=== PATIENT | female | born 1950 | race Caucasian/White ===

== ENCOUNTER 2024-05-24 17:31 | Inpatient (IN) ==
[2024-05-24] MEDS: SODIUM CHLORIDE 0.9% 1,000 ML IV SCH (18:13)
[2024-05-24] MEDS: SODIUM CHLORIDE 0.9% 250 ML IV ONE (18:13)
[2024-05-24] MEDS: METOPROLOL TARTRATE 1 MG/ML VIAL IV STA (18:16)
[2024-05-24 18:17] LABS: Basophils # (auto) 0.09 K/uL (0.00-0.20); Basophils % (auto) 0.7 %; Eosinophils # (auto) 0.15 K/uL (0.00-0.50); Eosinophils % (auto) 1.1 %; Hematocrit (blood only) 39.4 % (37.0-47.0); Hemoglobin 13.9 g/dl (12.0-16.0); Immature Granulocytes # (auto) 0.29 K/uL (0.01-0.20); Immature Granulocytes % (auto) 2.1 %; Lymphocytes % (auto) 5.1 %; Mean Corpuscular Hemoglobin 33.5 pg (25.0-34.0); Mean Corpuscular Hgb Conc 35.3 g/dL (32.0-36.0); Mean Corpuscular Volume 94.9 fL (80.0-100.0); Mean Platelet Volume 8.6 fL (9.4-12.4); Monocytes % (auto) 11.8 %; Neutrophils # (auto) 10.78 K/uL (1.40-6.50); Neutrophils % (auto) 79.2 %; Platelet Count 219 K/uL (130-400); RDW Coefficient of Variation 14.6 % (11.5-14.5); RDW Standard Deviation 50.1 fL (36.4-46.3); Red Blood Count 4.15 M/uL (4.20-5.40); White Blood Count 13.61 K/ul (4.8-10.8)
--- NOTE | 2024-05-24 18:34 | XRay Report ---
XR chest 1V portable CLINICAL HISTORY: weakness TECHNIQUE: Single frontal radiograph of the chest was obtained. Comparison: Comparison is made to chest radiograph 12/08/2014 and chest radiograph 03/14/2016 FINDINGS: Degenerative changes are seen in the bilateral shoulders with ossific fragments noted. The cardiomedi astinal silhouette is normal. The lungs are clear. No evidence of pleural effusion or pneumothorax. IMPRESSION: No acute chest disease. ACT 112: Negative or not required by law. Electronically signed by: Lang Mayers M.D. 05/24/2024 6:33 PM
[2024-05-24 18:36] LABS: Albumin Globulin Ratio 0.9 (0.9-2); Albumin Level 3.6 gm/dl (3.4-5.0); BUN Creatinine Ratio 22.7 (10-20); Bilirubin,Total 3.6 mg/dl (0.2-1.0); Creatinine Clr Calc Pharmacy 21.4 ml/min; Est GFR (African American) 22.8 ml/min; Est GFR (Non-African American) 19.7 ml/min; Magnesium 1.2 mg/dl (1.7-2.4); Potassium 5.8 mmol/L (3.5-5.1); Total Protein 7.6 gm/dl (6.0-8.3)
[2024-05-24 18:37] LABS: Troponin I High Sensitivity 23.2 pg/ml (0-14)
[2024-05-24 18:51] LABS: Thyroid Stimulating Hormone 5.183 uIu/ml (0.300-4.500)
[2024-05-24] MEDS: MAGNESIUM SULFATE / D5W 1 GM/100 ML BAG IV ONE (18:54)
--- NOTE | 2024-05-24 18:54 | Emergency Department Note ---
Impression & Plan Acute hyponatremia, Acute hyperkalemia, Acute renal failure, Atrial fibrillation with rapid ventricular response, Hypomagnesemia, Cellulitis, Leukocytosis ED Provider Note NAME: SEPIDEH FAM AGE: 74 SEX: Female INFORMANT: Patient ED PROVIDER(S): Wagner Sam MD CHIEF COMPLAINT: Abnormal labs PLAN: Disposition: Admitted Outpatient prescription management: none Referral: None MEDICAL DECISION MAKING: Patient presented due to abnormal labs. Physical examination was performed. Patient's legs were weeping and erythematous. She also noted pain. She had a diffuse dermatitis going on as well. Exact etiology was not obvious. Patient's had blood work obtained. Her CBC showed a leukocytosis. Chemistry panel revealed hyponatremia, hypomagnesium, hyperkalemia and an elevated creatinine concerning for acute renal failure. Patient had a borderline elevation of cardiac troponin. She did have A-fib with RVR on her ECG. Blood cultures and lactate were ordered. Patient was gently hydrated and given 2.5 mg of IV Lopressor for rate control. IV Rocephin was given for the suspected cellulitis. Patient did receive IV magnesium. Patient had gentle hydration done because of her hyponatremia and concerns about raising the sodium too quickly. She had no significant hypotension. Her lactate is minimally elevated. I suspect this is related to her metabolic state as opposed to true sepsis however she will need to be closely monitored. Discussed the findings with the patient and family. Consultation was made with Dr. Pederson of the [facility] service. Patient was evaluated in the ER for further management. Care/management discussed with: bilingual account manager Level of care consideration(s): After review of the information above and other included data, I feel the patient requires escalation of care to admission Triage Nursing notes: reviewed and agree them. Vital Signs: reviewed and remarkable for tachycardia Additional History obtained from: Family who was present. They note her legs have been a problem for her over a year. Rash is new. Chronic Medical/Social Conditions affecting care: Lives alone Prior/ Outside/ External records reviewed: none Differential Diagnosis: Infection, dehydration, metabolic abnormality, hypo/hyperglycemia, electrolyte disturbance, anemia, hypoxia, cardiac sources, intracerebral event, toxicologic, neurologic, as well as other pathologies. Diagnostics, independently interpreted by me: ECG: Twelve-lead ECG reveals atrial fibrillation with rapid ventricular response at 119 bpm. Low-voltage QRS. Anteroseptal Q waves. No peaked T waves. Cardiac Monitoring: Cardiac monitoring ordered by me: The patient was placed on continuous cardiac monitoring and observed. It revealed a atrial fibrillation at 122 bpm. Medical decision rules: none Imaging studies: Chest x-ray. Findings: A chest x-ray was performed and revealed no pneumothorax, effusion, infiltrate, pulmonary edema, free air under the diaphragm, or wide mediastinum. Impression: No acute disease. HPI: 74 year old Female arrives for evaluation of abnormal lab. Patient states she had blood work done by her PCP and was called and told that she had high potassium as well as low sodium. She was directed to the ER for further evaluation. Patient states that she has been dealing with chronic leg swelling and problems there for about a year. Over the last week or so they have worsened. She also notes over the last week or so she has developed a rash on the upper legs as well as the trunk and face. Patient notes the rash is itchy. She also has some numbness and tingling in her lower legs which has been going on for months. Patient feels generally weak. No new exposures that she is aware of. Patient lives alone. Patient denies any recent viral symptoms. No sick contacts or travel. Patient notes that she had history of hypertension but has stopped taking medication due to her blood pressure being low. Pt denies LOC, headache, fevers, chills, diaphoresis, visual changes, neck pain, chest pain, breathing difficulties, nausea, vomiting, abdominal pain, back pain, melena, hematochezia, urinary symptoms, lymphadenopathy, or other complaints.. PAST MEDICAL HISTORY: See Below, hypertension PAST SURGICAL HISTORY: See Below, knee replacement SOCIAL HISTORY: See Below, lives alone HOME MEDICATIONS: See Below ALLERGIES: See Below VITALS: See Below PHYSICAL EXAMINATION: GENERAL: Awake, alert, uncomfortable-appearing, in no distress HENT: Normocephalic, atraumatic. Oropharynx unremarkable. PERRLA. EOMI EYES: Normal conjunctiva. Sclera non-icteric. NECK: Inspection normal. Non-tender. Supple. No nuchal rigidity. FROM. No masses. RESPIRATORY: Clear to auscultation. No wheezes. No rales. Normal respiratory effort. CARDIAC: Tachycardia irregular rate. Normal rhythm. No murmurs. No rubs. Extremities warm and well perfused. Pulses equal. No JVD. GI: Soft, non-distended. No tenderness to palpation. No rebound or guarding. No masses. RECTAL: Deferred. MUSCULOSKELETAL: Atraumatic. Chest examination reveals no tenderness. The back is symmetrical on inspection without obvious abnormality. There is no CVA tenderness to palpation. No joint edema. LOWER EXTREMITIES: Calves are equal size bilaterally and non-tender. 2+ edema. Erythematous discoloration. NEURO: Normal sensorium. No sensory or motor deficits noted. SKIN: Patient has a diffuse erythematous papular rash noted on the lower extremities and trunk. There is scabbing noted to the face. Secondary excoriations are present throughout. No obvious burrows. No vesicles. No petechia, purpura, or jaundice noted. PROCEDURES: none CRITICAL CARE: I have personally spent 40 minutes of critical care time in the direct management of this patient. This includes bedside care, interpretation of diagnostic studies, and testing, discussion with consultants, patient, and family members, and other required patient management activities. These minutes are in excess of all separately billable procedures. OBSERVATION NOTE: none Past Med/Surg History Problem List (Updated 05/24/24 @ 23:11 by Gala Pederson DO) Abnormal LFTs Rash Leukocytosis (Acute) Cellulitis (Acute) Hypomagnesemia (Acute) Atrial fibrillation with rapid ventricular response (Acute) Acute renal failure (Acute) Acute hyperkalemia (Acute) Acute hyponatremia (Acute) Right knee DJD Medical History (Updated 05/24/24 @ 23:11 by Gaal Pederson DO) Carotid artery disease s/p right CEA Peripheral vascular disease s/p stenting to LLE x 2 Hypertension Surgical History (Updated 05/24/24 @ 22:59 by Gala Pederson DO) H/O carotid endarterectomy S/P TKR (total knee replacement) Family History (Updated 05/24/24 @ 23:00 by Gala Pederson DO) Other Hypertension Parkinson disease Social History Smoking Status: Never smoker Preferred Language: Mongolian Feels Safe at Home: Yes Allergies Allergies Allergy/AdvReac Type Severity Reaction Status Date / Time No Known Drug Allergies Allergy Unknown Verified 05/24/24 19:49 Home Meds Home Medications Medication Instructions Recorded Confirmed acetaminophen 500 mg tablet 1,000 mg PO Q8H PRN Pain 05/24/24 05/24/24 (Tylenol Extra Strength) aspirin 500 mg tablet 1,000 mg PO Q6H PRN Pain 05/24/24 05/24/24 atenolol 25 mg tablet 25 mg PO BID 05/24/24 05/24/24 clopidogrel 75 mg tablet 75 mg PO DAILY 05/24/24 05/24/24 ezetimibe 10 mg tablet 10 mg PO DAILY 05/24/24 05/24/24 hydrochlorothiazide 12.5 mg tablet 0 mg PO DAILY 05/24/24 05/24/24 ibuprofen 200 mg capsule (Advil 400 mg PO Q6H PRN Pain 05/24/24 05/24/24 Liqui-Gel) loratadine 10 mg tablet (Claritin) 10 mg PO QAM PRN allergies 05/24/24 05/24/24 magnesium oxide 400 mg PO DAILY 05/24/24 05/24/24 potassium chloride 10 mEq 10 meq PO DAILY 05/24/24 05/24/24 tablet,extended release(part/cryst) (Klor-Con M) Results & Data (ED) Vital Signs Vital Signs - 24 hr 05/24/24 17:36 05/24/24 17:59 05/24/24 18:18 Temperature 36.3 C L Temperature Source Oral Pulse Rate 118 H 117 H Pulse Rate [Finger] 111 H Respiratory Rate 18 20 Respiratory Effort / Characteristics Non-Labored Spontaneous Respiratory Depth Normal Respiratory Pattern Regular Blood Pressure 107/72 Blood Pressure [Left Arm] 101/72 Blood Pressure Mean 83 Blood Pressure Mean [Left Arm] 81 Blood Pressure Position Sitting Pulse Oximetry 98 100 Oxygen Delivery Method Room Air Room Air Sepsis Recent Fever Within 48 Hours No Sepsis New/Unexplained Change in Mental Status No Sepsis Action Taken by Nursing No Action Required 05/24/24 18:18 05/24/24 18:55 Temperature Temperature Source Pulse Rate 119 H Pulse Rate [Finger] Respiratory Rate Respiratory Effort / Characteristics Respiratory Depth Respiratory Pattern Blood Pressure 112/37 L Blood Pressure [Left Arm] Blood Pressure Mean Blood Pressure Mean [Left Arm] Blood Pressure Position Pulse Oximetry 96 Oxygen Delivery Method Room Air Sepsis Recent Fever Within 48 Hours Sepsis New/Unexplained Change in Mental Status Sepsis Action Taken by Nursing Laboratory Data 05/24/24 17:49 05/24/24 17:49 Lab Results 05/24/24 05/24/24 Range/Units 17:49 19:11 WBC 13.61 H (4.8-10.8) K/ul RBC 4.15 L (4.20-5.40) M/uL Hgb 13.9 (12.0-16.0) g/dl Hct 39.4 (37.0-47.0) % MCV 94.9 (80.0-100.0) fL MCH 33.5 (25.0-34.0) pg MCHC 35.3 (32.0-36.0) g/dL RDW Std Deviation 50.1 H (36.4-46.3) fL RDW Coeff of Kati 14.6 H (11.5-14.5) % Plt Count 219 (130-400) K/uL MPV 8.6 L (9.4-12.4) fL Immature Gran % (Auto) 2.1 % Neut % (Auto) 79.2 % Lymph % (Auto) 5.1 % [place] % (Auto) 11.8 % Eos % (Auto) 1.1 % Baso % (Auto) 0.7 % Neut # (Auto) 10.78 H (1.40-6.50) K/uL Lymph # (Auto) 0.70 L (1.20-3.40) K/uL [place] # (Auto) 1.60 H (0.11-0.59) K/uL Eos # (Auto) 0.15 (0.00-0.50) K/uL Baso # (Auto) 0.09 (0.00-0.20) K/uL Immature Gran # (Auto) 0.29 H (0.01-0.20) K/uL Sodium 118 L* (136-145) mmol/L Potassium 5.8 H (3.5-5.1) mmol/L Chloride 82 L (98-107) mmol/L Carbon Dioxide 20 L (21-32) mmol/L Anion Gap 16 H (3-11) BUN 54 H (6-23) mg/dl Creatinine 2.38 H (0.6-1.2) mg/dl Est Cr Clr Drug Dosing 21.4 ml/min Est GFR ( Amer) 22.8 ml/min Est GFR (Non-Af Amer) 19.7 ml/min BUN/Creatinine Ratio 22.7 H (10-20) Glucose 130 H (70-99(Fasting)) mg/dl Lactate 2.6 H* (0.4-2.0) mmol/L Calcium 9.0 (8.6-10.3) mg/dl Magnesium 1.2 L (1.7-2.4) mg/dl Total Bilirubin 3.6 H (0.2-1.0) mg/dl AST 42 H (13-39) U/L ALT 44 (7-52) U/L Alkaline Phosphatase 149 H (34-104) U/L Troponin I High Sens 23.2 H 12.3 D (0-14) pg/ml C-Reactive Protein 10.96 H (0-0.5) mg/dl Total Protein 7.6 (6.0-8.3) gm/dl Albumin 3.6 (3.4-5.0) gm/dl Globulin 4.0 (2.5-4.0) gm/dl Albumin/Globulin Ratio 0.9 (0.9-2) TSH 5.183 H (0.300-4.500) uIu/ml Free T4 1.63 H (0.61-1.60) ng/dl Lyme Disease Screen Negative (Negative) Administered Medications Hydromorphone HCl (Hydromorphone Inj 0.5 Mg/0.5 Ml Syr) 0.25 mg IV Q4H PRN PRN Reason: Pain Stop: 06/07/24 20:31 Last Admin: 05/25/24 00:12 Dose: 0.25 mg Documented By: KIANA Discontinued Medications Hydromorphone HCl (Hydromorphone Inj 0.5 Mg/0.5 Ml Syr) 0.25 mg IV NOW STA Stop: 05/24/24 20:33 Last Admin: 05/24/24 21:00 Dose: 0.25 mg Documented By: JOSE Sodium Chloride (Nss) 1,000 mls @ 125 mls/hr IV .Q8H TIFFANI Stop: 05/25/24 01:59 Last Admin: 05/24/24 18:13 Dose: 125 mls/hr Documented By: JOSE Sodium Chloride (Nss) 250 mls @ 999 mls/hr IV .Q16M ONE Stop: 05/24/24 18:18 Last Infusion: 05/24/24 20:19 Dose: Infused Documented By: Admin: 05/24/24 18:13 Dose: 999 mls/hr Documented By: JOSE Magnesium Sulfate/Dextrose (Magnesium Sulfate / D5w) 1 gm in 100 mls @ 50 mls/hr IV ONE ONE Stop: 05/24/24 20:47 Last Infusion: 05/24/24 20:39 Dose: Infused Documented By: Admin: 05/24/24 18:54 Dose: 50 mls/hr Documented By: JOSE Ceftriaxone Sodium (Rocephin) 2,000 mg in 50 mls @ 100 mls/hr IV NOW STA Stop: 05/24/24 19:29 Last Infusion: 05/24/24 20:19 Dose: Infused Documented By: Admin: 05/24/24 19:52 Dose: 100 mls/hr Documented By: JOSE Metoprolol Tartrate (Metoprolol Tartrate 1 Mg/Ml Vial) 2.5 mg IV NOW STA Stop: 05/24/24 18:04 Last Admin: 05/24/24 18:16 Dose: 2.5 mg Documented By: JOSE Imaging Data Radiologist's Impression: Chest X-Ray 05/24/24 17:47 XR chest 1V portable CLINICAL HISTORY: weakness TECHNIQUE: Single frontal radiograph of the chest was obtained. Comparison: Comparison is made to chest radiograph 12/08/2014 and chest radiograph 03/14/2016 FINDINGS: Degenerative changes are seen in the bilateral shoulders with ossific fragments noted. The cardiomediastinal silhouette is normal. The lungs are clear. No evidence of pleural effusion or pneumothorax. IMPRESSION: No acute chest disease. ACT 112: Negative or not required by law. Electronically signed by: Lang Mayers M.D. 05/24/2024 6:33 PM Discharge Plan Visit Data Chief Complaint: Abnormal Labs/Diagnostic Testing Stated Complaint: HIGH POTASSIUM, LOW SODIUM ED Provider: Wagner Sam Discharge Problem: Acute hyponatremia, Acute hyperkalemia, Acute renal failure, Atrial fibrillation with rapid ventricular response, Hypomagnesemia, Cellulitis, Leukocytosis Patient Disposition: Admitted As Inpatient Discharge Instructions Interventions: ED Discharge Assessment Last Done: 05/24/24 21:55
[2024-05-24 19:28] LABS: T4 Free Thyroxine 1.63 ng/dl (0.61-1.60)
[2024-05-24] MEDS: cefTRIAXone SODIUM 2,000 MG/50 ML BAG IV STA (19:52)
[2024-05-24 20:05] LABS: Troponin I High Sensitivity 12.3 pg/ml (0-14)
--- NOTE | 2024-05-24 20:11 | History & Physical Report ---
Date of Service May 24, 2024 Assessment & Plan (1) Cellulitis: (2) Atrial fibrillation with rapid ventricular response: (3) Acute renal failure: (4) Acute hyperkalemia: (5) Acute hyponatremia: (6) Rash: (7) Abnormal LFTs: Plan 74yo female with history of peripheral vascular disease, hypertension and daily EtOH use presenting with multiple complaints - mainly worsening diffuse body pain, burning and shooting pain in her bilateral LE as well as pain and burning of her tongue. Patient found to have multiple laboratory abnormalities including leukocytosis, NATO with electrolyte abnormalities - hyperkalemia and hyponatremia and abnormal LFTs. 1. Neuro - patient AA&O x 4, answers questions appropriately. No focal deficits present on neurological exam. Her burning sensation of her feet and hands as well as shooting pains in her legs likely secondary to neuropathic gerald n. Wide differential to include electrolyte abnormalities (Hyponatremia, hypomagnesemia and hyperkalemia), NATO, thyroid disease, EtOH induced, vitamin deficiency specifically B vitamin or folate vs undiagnosed DM or autoimmune disease -Electrolyte management -Check HgbA1C, B12 and Folate levels -Daily Thiamine supplementation 100mg and Folate 1mg daily -Tylenol and Dilaudid as needed for pain -Consider starting Gabapentin for pain if renal function improves 2. Cardiovascular - patient with new onset atrial fibrillation with RVR on arrival. HR improved after Metoprolol given in the ER -Continue IVF and electrolyte repletion -Telemetry monitoring -Check 2D echo -Continue home Atenolol 25mg po BID with holding parameters -Check bilateral LE arterial duplex given history of PVD, medication non- adherence, worsening leg pain and dusky appearance of feet/toes -Continue ASA and Plavix 3. Pulmonary - no active issues. Patient with no respiratory distress, currently 99% on room air. CXR unremarkable. 4. Gastrointestinal - patient with abnormal LFTs predominantly in cholestatic pattern with Tbili=3.6, XF=391. Very mild elevation of AST=42. -Repeat LFTs in AM -Send acute hepatitis panel (for possibility of vasculitis as well) -Send tick-borne panel including Rickettsial disease -Hold statin for now while on Daptomycin 5. Genitourinary - patient with presumed NATO, BUN=54, Cr=2.38. Unknown baseline - patient does not recall being told that she has any kidney disease. Also with gapped metabolic acidosis (GAP=16, HCO3=20) and hyperkalemia=5.8. She reports decreased PO intake due to general illness as well as increased intake of Advil over the last several weeks. -Check renal ultrasound -Awaiting UA, culture if indicated -Check urine Na and Cr to calculate FeNA -Check creatine kinase -Telemetry monitoring -Avoid nephrotoxic agents -Renal dosing where needed -Hyponatremia workup to include urine and serum osmolality and urine Na -Repeat chemistry on arrival to floor and daily 6. Hematology - patient with leukocytosis. Uncertain origin of her diffuse rash. Concern for possible small vessel vasculitis given appearance. CRP elevated as well. She reports being seen for this rash by her PCP, uncertain what workup has been completed thus far. -Request records - if no prior workup would consider CARLOS, ANCA, ASO -ESR, CRP -Check acute hepatitis panel -Tick panel -Possible biopsy 7. Infectious Disease - patient with cellulitis, sepsis present on admission with leukocytosis and elevated HR -Follow cultures sent from ER -Continue empiric antibiotics, Daptomycin and Ceftriaxone 8. Endocrine - patient with elevated TSH and T4 -consider repeating these outside of acute illness 9. Integument - -Turn and position -Wound care BID 10. History of daily EtOH use - unable to fully quantify amount - appx 3-6 drinks/day, sometimes more. Last drink prior to arrival. No history of withdrawal -AWSS, Ativan as needed for at risk protocol -Daily Thiamine and Folate -Banana bag x 500mL F/E/N - LR at 1oomL/hr x 2L Ppx - Heparin Code - Full Dispo - Admit to PCU History of Present Illness Chief Complaint: diffuse rash, pain and redness in legs Primary Care Provider: NO PCP Lucy Monaco is a 74yo female with history of HTN, PVD s/p right CEA and stenting x 2 to LLE presenting with diffuse rash and worsening pain in her bilateral LE. Patient was seen by her PCP and had blood drawn today due to progressive symptoms - she was contacted by PCP and told to come to the ER due to low sodium, high potassium and poor kidney function. Patient reports that she has had problems with her legs for approximately 1.5 years. She has intermittent bouts of cellulitis and unhealing wounds. She has been on several courses of antibiotics in the past, although none recently. She does see wound care and has home health that comes in to change her LE bandages. Over the last several weeks she has had progression of pain in her bilateral LE as well as oozing and bleeding. She reports constant burning discomfort in her feet, legs and hands and more recently a sharp, shooting pain in her legs bilaterally L > R. She is complaining of diffuse, worsening body pain and has been taking a lot of Advil for this over the last several days. Patient additionally has a diffuse, erythematous, pruritic rash involving her trunk, back, extremities and face. She has been seen by her PCP for this - th ought initially to be scabies. She was treated with Permethrin which improved her itching somewhat. She does not have evidence of bed bugs. She denies new medications recently. Her PCP has more recently been concerned about systemic infection leading to the rash - she has not yet had a biopsy or scraping collected. Patient also complaining of severe burning in her mouth. Reports that she is able to eat ice cream but has been having a difficult time eating other things for the last several days. Also repots decreased UOP - reports minimal urine output over the last 1-2 weeks. She did have some mild dysuria as well. Patient reports nausea with one episode of vomiting, non-bloody/non-bilious yesterday. Otherwise, denies fever, chills, chest pain, SOB, palpitations, abdominal pain, diarrhea, worsening joint pain or swelling, ulcers. No recent vaccinations, travel or sick contacts. She did have Covid-19 in January but reports she was not that ill. In the ER patient found to be in atrial fibrillation with RVR, rate of 118bpm. No prior history of such. ER Course: Ceftriaxone x 2gm IV Magnesium x 1gm IV Metoprolol 2.5mg IV NSS x 1250mL Dilaudid 0.25mg IV Baseline functional status - patient lives at home alone. She does have family nearby and friends that visit. She spends most of her time sitting at a computer desk and sleeps sitting at the desk as well. She has had worsening ambulatory dysfunction over the last several weeks due to her leg pain and diffuse body pain. She reports some skin breakdown of her sacral region as well. Patient drinks daily - sandra, reports 3-6 drinks per day, more on occasion due to pain. No history of EtOH withdrawal. Last drink was prior to arrival. She has not been taking her home medications consistently for several weeks. Reports she stopped her statin on her own appx 6 months ago and has not been taking her blood pressure medications due to her pressure being low at home. She has not taken the HCTZ for "a while". Follows regularly with PCP in [place]. Allergies Allergy/AdvReac Type Severity Reaction Status Date / Time No Known Drug Allergies Allergy Unknown Verified 05/24/24 19:49 Home Medications Medication Instructions Recorded Confirmed Type acetaminophen 500 mg tablet 1,000 mg PO Q8H PRN Pain 05/24/24 05/24/24 History (Tylenol Extra Strength) aspirin 500 mg tablet 1,000 mg PO Q6H PRN Pain 05/24/24 05/24/24 History atenolol 25 mg tablet 25 mg PO BID 05/24/24 05/24/24 History clopidogrel 75 mg tablet 75 mg PO DAILY 05/24/24 05/24/24 History ezetimibe 10 mg tablet 10 mg PO DAILY 05/24/24 05/24/24 History hydrochlorothiazide 12.5 mg tablet 0 mg PO DAILY 05/24/24 05/24/24 History ibuprofen 200 mg capsule (Advil 400 mg PO Q6H PRN Pain 05/24/24 05/24/24 History Liqui-Gel) loratadine 10 mg tablet (Claritin) 10 mg PO QAM PRN allergies 05/24/24 05/24/24 History magnesium oxide 400 mg PO DAILY 05/24/24 05/24/24 History potassium chloride 10 mEq 10 meq PO DAILY 05/24/24 05/24/24 History tablet,extended release(part/cryst) (Vera Rodriguez) Past Med/Surg History Problem List (Updated 05/24/24 @ 23:11 by Gala Pederson DO) Abnormal LFTs Rash Leukocytosis (Acute) Cellulitis (Acute) Hypomagnesemia (Acute) Atrial fibrillation with rapid ventricular response (Acute) Acute renal failure (Acute) Acute hyperkalemia (Acute) Acute hyponatremia (Acute) Right knee DJD Medical History (Updated 05/24/24 @ 23:11 by Gala Pederson DO) Carotid artery disease s/p right CEA Peripheral vascular disease s/p stenting to LLE x 2 Hypertension Surgical History (Updated 05/24/24 @ 22:59 by Gala Pederson DO) H/O carotid endarterectomy S/P TKR (total knee replacement) Family History (Updated 05/24/24 @ 23:00 by Gala Pederson DO) Other Hypertension Parkinson disease Social History Smoking Status: Never smoker Preferred Language: Hebrew Feels Safe at Home: Yes Review of Systems Review of Systems: All systems reviewed & are unremarkable except as noted in HPI & below Patient endorses pain in her feet, legs, fingertips Patient endorses burning in her mouth and tongue Patient endorses pain and skin breakdown of her sacral region Physical Exam Physical Exam: General: ill appearing elderly female resting in bed, in moderate distress secondary to leg discomfort Skin: diffuse rashes present. * On bilateral LE appears to have some venous stasis changes with areas of weeping, erythematous, warm and tender to touch. Xeroform dressings in place. Some maceration and breakdown of skin of posterior calf R > L, dusky appearing toes bilaterally, dusky appearing patches present on plantar surfaces of feet bilaterally with some skin peeling - feet are cool to touch. Adequate capillary refill and palpable DP pulses in bilateral LE. * Red, moist, well demarcated rash present beneath breasts bilaterally * Erythematous, scaling rash present on patient's trunk, arms and back with small punctate scattered areas of eschar, somewhat tender to touch * No obvious excoriations, no burrows in the interdigital regions or nails, no crusting to suspect scabies HEENT: NC/AT, PERRL, EOMI, anicteric sclera, conjunctiva without injection, external ear normal to inspection and nontender, nares patent, dry mucus membranes, dentition intact, no oropharyngeal lesions, neck supple, trachea midline, no LAD, no thyromegaly, no JVD Heart: +S1/S2, irregularly irregular, no m/r/g Lungs: equal air entry bilaterally, no rales/rhonchi/wheezes Abd: +BS, soft, NT/ND, no masses/organomegaly/ascites Ext: feet cool to touch, dusky discoloration of toes and plantar surface, adequate capillary refill and palpable DP pulses, trace bilateral LE edema Neuro: nonfocal, patient AA&O x 4, speech intact, no facial droop, moving all extremities on command with equal strength 5/5 Redness of sacral region Results & Data Results & Data Vital Signs (Past 12 Hours) Vital Signs Temp Pulse Pulse Resp BP BP Pulse Ox 05/24/24 20:08 108 H 16 110/73 99 05/24/24 18:55 119 H 112/37 L 05/24/24 18:18 96 05/24/24 18:18 111 H 20 101/72 100 05/24/24 17:59 117 H 05/24/24 17:36 36.3 C L 118 H 18 107/72 98 O2 Del Method 05/24/24 20:08 Room Air 05/24/24 18:55 05/24/24 18:18 Room Air 05/24/24 18:18 Room Air 05/24/24 17:59 05/24/24 17:36 Room Air Laboratory Results Laboratory Results WBC 13.61 K/ul (4.8-10.8) H 05/24/24 17:49 RBC 4.15 M/uL (4.20-5.40) L 05/24/24 17:49 Hgb 13.9 g/dl (12.0-16.0) 05/24/24 17:49 Hct 39.4 % (37.0-47.0) 05/24/24 17:49 MCV 94.9 fL (80.0-100.0) 05/24/24 17:49 MCH 33.5 pg (25.0-34.0) 05/24/24 17:49 MCHC 35.3 g/dL (32.0-36.0) 05/24/24 17:49 RDW Std Deviation 50.1 fL (36.4-46.3) H 05/24/24 17:49 RDW Coeff of Kati 14.6 % (11.5-14.5) H 05/24/24 17:49 Plt Count 219 K/uL (130-400) 05/24/24 17:49 MPV 8.6 fL (9.4-12.4) L 05/24/24 17:49 Immature Gran % (Auto) 2.1 % 05/24/24 17:49 Neut % (Auto) 79.2 % 05/24/24 17:49 Lymph % (Auto) 5.1 % 05/24/24 17:49 [place] % (Auto) 11.8 % 05/24/24 17:49 Eos % (Auto) 1.1 % 05/24/24 17:49 Baso % (Auto) 0.7 % 05/24/24 17:49 Neut # (Auto) 10.78 K/uL (1.40-6.50) H 05/24/24 17:49 Lymph # (Auto) 0.70 K/uL (1.20-3.40) L 05/24/24 17:49 [place] # (Auto) 1.60 K/uL (0.11-0.59) H 05/24/24 17:49 Eos # (Auto) 0.15 K/uL (0.00-0.50) 05/24/24 17:49 Baso # (Auto) 0.09 K/uL (0.00-0.20) 05/24/24 17:49 Immature Gran # (Auto) 0.29 K/uL (0.01-0.20) H 05/24/24 17:49 Sodium 118 mmol/L (136-145) L* 05/24/24 17:49 Potassium 5.8 mmol/L (3.5-5.1) H 05/24/24 17:49 Chloride 82 mmol/L (98-107) L 05/24/24 17:49 Carbon Dioxide 20 mmol/L (21-32) L 05/24/24 17:49 Anion Gap 16 (3-11) H 05/24/24 17:49 BUN 54 mg/dl (6-23) H 05/24/24 17:49 Creatinine 2.38 mg/dl (0.6-1.2) H 05/24/24 17:49 Est Cr Clr Drug Dosing 21.4 ml/min 05/24/24 17:49 Est GFR ( Amer) 22.8 ml/min 05/24/24 17:49 Est GFR (Non-Af Amer) 19.7 ml/min 05/24/24 17:49 BUN/Creatinine Ratio 22.7 (10-20) H 05/24/24 17:49 Glucose 130 mg/dl (70-99(Fasting)) H 05/24/24 17:49 Lactate 2.5 mmol/L (0.4-2.0) H* 05/24/24 21:04 Calcium 9.0 mg/dl (8.6-10.3) 05/24/24 17:49 Magnesium 1.2 mg/dl (1.7-2.4) L 05/24/24 17:49 Total Bilirubin 3.6 mg/dl (0.2-1.0) H 05/24/24 17:49 AST 42 U/L (13-39) H 05/24/24 17:49 ALT 44 U/L (7-52) 05/24/24 17:49 Alkaline Phosphatase 149 U/L (34-104) H 05/24/24 17:49 Troponin I High Sens 12.3 pg/ml (0-14) D 05/24/24 19:11 C-Reactive Protein 10.96 mg/dl (0-0.5) H 05/24/24 19:11 Total Protein 7.6 gm/dl (6.0-8.3) 05/24/24 17:49 Albumin 3.6 gm/dl (3.4-5.0) 05/24/24 17:49 Globulin 4.0 gm/dl (2.5-4.0) 05/24/24 17:49 Albumin/Globulin Ratio 0.9 (0.9-2) 05/24/24 17:49 TSH 5.183 uIu/ml (0.300-4.500) H 05/24/24 17:49 Free T4 1.63 ng/dl (0.61-1.60) H 05/24/24 17:49 Lyme Disease Screen Negative (Negative) 05/24/24 17:49 Impressions Chest X-Ray 05/24/24 17:47 XR chest 1V portable CLINICAL HISTORY: weakness TECHNIQUE: Single frontal radiograph of the chest was obtained. Comparison: Comparison is made to chest radiograph 12/08/2014 and chest radiograph 03/14/2016 FINDINGS: Degenerative changes are seen in the bilateral shoulders with ossific fragments noted. The cardiomediastinal silhouette is normal. The lungs are clear. No evidence of pleural effusion or pneumothorax. IMPRESSION: No acute chest disease. ACT 112: Negative or not required by law. Electronically signed by: Lang Mayers M.D. 05/24/2024 6:33 PM Diagnostic Findings Renal ultrasound obtained - read pending Duplex Scan LE arterial obtained - read pending ECG Additional Comments: EKG with AF with RVR, rate 119, QRS=80, BNh=937, no acute ischemic changes PG Care Time/CCT Total # of Minutes Spent Total Time Spent with Patient: Total time spent is greater than 50% in coordination of care (as documented) at patient's floor/unit and/or counseling patient: Coding Level of Care Code 28090 INT INP/OBS CARE 3/75MIN Diagnoses Cellulitis L03.90 Atrial fibrillation with rapid ventricular response I48.91 Acute renal failure N17.9 Acute hyperkalemia E87.5 Acute hyponatremia E87.1 Rash R21 Abnormal LFTs R79.89
[2024-05-24] MEDS: HYDROmorphone INJ 0.5 MG/0.5 ML SYR IV STA (21:00)
[2024-05-24 22:24] LABS: C Reactive Protein 10.96 mg/dl (0-0.5)
[2024-05-25] MEDS ORDERED: ONDANSETRON INJ 2 MG/ML 2 ML VIAL IV PRN (00:04)
[2024-05-25] MEDS: HYDROmorphone INJ 0.5 MG/0.5 ML SYR IV PRN (00:12)
[2024-05-25] MEDS: MULTI-VITAMIN INFUSION 10 ML, THIAMINE HCL 100 MG, FOLIC ACID 1 MG in SODIUM CHLORIDE 0... IV ONE (01:24)
[2024-05-25] MEDS: DAPTOmycin 225 MG in SYRINGE 0 ML IV SCH (01:29)
[2024-05-25] MEDS: HYDROmorphone INJ 0.5 MG/0.5 ML SYR IV STA (01:45)
[2024-05-25] MEDS: MAGNESIUM SULFATE / D5W 1 GM/100 ML BAG IV SCH (01:45)
[2024-05-25] MEDS: LACTATED RINGER'S 1,000 ML IV SCH (01:45)
[2024-05-25 01:54] LABS: BUN Creatinine Ratio 25.7 (10-20); Calcium 7.8 mg/dl (8.6-10.3); Creatinine Clr Calc Pharmacy 27.3 ml/min; Est GFR (African American) 30.6 ml/min; Est GFR (Non-African American) 26.4 ml/min; Potassium 4.3 mmol/L (3.5-5.1)
[2024-05-25 01:59] LABS: Prothrombin Time 11.2 Seconds (9.0-12.0)
[2024-05-25 02:16] LABS: Folate (Folic Acid),Ser orPlas 14.14 ng/ml (>5.38)
--- NOTE | 2024-05-25 04:50 | Ultrasound Report ---
Exam(s): US ARTERIAL BILATERAL LOWER EXTREMITIES EXAM: US Duplex Bilateral Lower Extremities Arteries CLINICAL HISTORY: Reason for exam: dusky LE bilaterally, h/o PVD. TECHNIQUE: Real-time duplex ultrasound scan of the bilateral lower extremity arteries integrating B-mode two-dimensional vascular structure, Doppler spectral analysis and color flow Doppler imaging. COMPARISON: None. FINDINGS: Reportedly markedly limited/suboptimal exam due to patient inability to cooperate with the study. Right lower extremity: Moderate amount of calcified/noncalcified plaque seen throughout. Right common femoral artery: No occlusion or significant stenosis on color flow and spectral Doppler imaging. Normal waveform. Right superficial femoral artery: Proximal/mid right SFA: No occlusion or significant stenosis on color flow and spectral Doppler imaging. Biphasic waveform. Distal right SFA chronic occlusion with collaterals visualized. Right calf/foot arteries: Dampened velocities an abnormal monophasic waveform. Left lower extremity: Moderate amount of plaque seen throughout. Left common femoral artery: No acute findings. No occlusion or significant stenosis on color flow and spectral Doppler imaging. Normal waveform. Left superficial femoral artery: Proximal left superficial femoral artery with monophasic waveform. Left calf/foot arteries: Dampened velocities and abnormal monophasic waveform. Soft tissues: Soft tissue edema. IMPRESSION: Limited/suboptimal exam. Moderate amount of atherosclerotic plaques are visualized throughout the both lower extremity arteries. Demonstrates chronic occlusion with collaterals of the distal right superficial femoral artery. Right and left calf/foot arteries: Dampened velocities and abnormal monophasic arterial waveforms, compatible with high-grade peripheral arterial disease. Electronically signed by: Vero Lord MD, DAVY 05/25/24 04:50 AM
[2024-05-25 06:11] LABS: Hematocrit (blood only) 33.7 % (37.0-47.0); Hemoglobin 11.6 g/dl (12.0-16.0); Mean Corpuscular Hemoglobin 33.3 pg (25.0-34.0); Mean Corpuscular Hgb Conc 34.4 g/dL (32.0-36.0); Mean Corpuscular Volume 96.8 fL (80.0-100.0); Mean Platelet Volume 8.6 fL (9.4-12.4); Platelet Count 175 K/uL (130-400); RDW Coefficient of Variation 14.6 % (11.5-14.5); RDW Standard Deviation 51.1 fL (36.4-46.3); Red Blood Count 3.48 M/uL (4.20-5.40); White Blood Count 11.64 K/ul (4.8-10.8)
[2024-05-25 06:30] LABS: Albumin Level 2.9 gm/dl (3.4-5.0); BUN Creatinine Ratio 28.7 (10-20); Bilirubin Direct 1.1 mg/dl (0-0.2); Bilirubin,Total 2.2 mg/dl (0.2-1.0); Calcium 7.6 mg/dl (8.6-10.3); Creatinine Clr Calc Pharmacy 31.7 ml/min; Est GFR (African American) 37.8 ml/min; Est GFR (Non-African American) 32.6 ml/min; Potassium 4.3 mmol/L (3.5-5.1); Total Protein 5.9 gm/dl (6.0-8.3)
[2024-05-25 07:07] LABS: Estimated Average Glucose 120 mg/dl; Hemoglobin A1C 5.8 % (4.5-5.6)
[2024-05-25 07:07] LABS: Creatinine Urine Random 83.8 mg/dl
--- NOTE | 2024-05-25 08:22 | Ultrasound Report ---
ULTRASOUND KIDNEYS AND BLADDER CLINICAL HISTORY: Acute renal insufficiency.. COMPARISON STUDY: No priors. TECHNIQUE: Real-time, grayscale, and color flow sonography of the kidneys and bladder is performed. I mages are reviewed in the transverse and longitudinal planes. FINDINGS: Kidneys: The kidneys are normal in size and echotexture. The right kidney measures 10.3 cm in length and the left kidney measures 11.7 cm in length. There is no hydronephrosis. No shadowing renal calcu li are identified. Small bilateral renal cysts measure up to 1.8 cm. There is no sonographic evidence of contour deforming renal mass lesion. No perinephric fluid is identified. Bladder: The bladder is normal in appearance. Ureteral jets were not seen. Upper abdomen: Survey imaging of the liver shows evidence of steatosis. IMPRESSION: 1. The kidneys are normal in size and without hydronephrosis. 2. The bladder is normal as imaged. 3. Hepatic steatosis. ACT 112: Negative or not required by law. Electronically signed by: Terrell Valdivia M.D. 05/25/2024 8:21 AM
[2024-05-25 10:05] LABS: Hep B Surface Ag with confirm Negative (Negative)
[2024-05-25 10:10] LABS: Hep C Ab Rflx HepCQuant RNA Negative (Negative)
[2024-05-25] MEDS: CLOPIDOGREL BISULFATE 75 MG TAB PO SCH (10:22)
[2024-05-25] MEDS: ATENOLOL 25 MG TABLET PO SCH (10:23)
[2024-05-25] MEDS: FOLIC ACID 1 MG TAB PO SCH (10:23)
[2024-05-25] MEDS: THIAMINE HCL 100 MG TAB PO SCH (10:23)
[2024-05-25] MEDS: HEPARIN SOD 5,000 UNIT/0.5 ML VIAL SQ SCH (10:24)
[2024-05-25] MEDS: NYSTATIN CR 15 GM TUBE EXT SCH (10:24)
[2024-05-25] MEDS: SODIUM CHLORIDE 0.9% 1,000 ML IV ONE (10:41)
[2024-05-25] MEDS: LORazepam 2 MG/1 ML VIAL IV PRN (10:44)
--- NOTE | 2024-05-25 10:54 | Hospitalist Progress Note ---
Date of Service May 25, 2024 Assessment & Plan (1) Peripheral vascular disease: (2) Abnormal LFTs: (3) Rash: (4) Leukocytosis: (5) Cellulitis: (6) Atrial fibrillation with rapid ventricular response: (7) Acute renal failure: (8) Acute hyponatremia: (9) Acute hyperkalemia: (10) Alcohol abuse: (11) Dehydration: (12) Hepatic steatosis: (13) Intertrigo: (14) Petechiae: Plan Patient is a 74-year-old female with past medical history of hypertension, peripheral vascular disease status post right CEA and stents x 2 in the left lower extremity who was sent to the emergency department by her wound care doctor after abnormal findings in lab work. On arrival to emergency department, patient was found to be in A-fib with RVR, and also was meeting SIRS criteria due to tachycardia, hypotension, and leukocytosis. Decision was made to admit patient. # New onset A-fib - Patient states she had been told in the past she has "a weird rhythm" and was on Atenolol 25 mg at home for which she believed was BP controlled - Stopped Atenolol 25 mg around 01/2024 due to low blood pressures at home - In a-fib w/ RVR in the ED and given Metoprolol 2.5 mg due to low BP - Asymptomatic - Ordered TTE (05/25/24): normal LV systolic function, mildly dilated left and right atria, no valvular disease, EF of 60-65% - TSH ~5 and T4 of ~1, so little concern for thyroid disease as a cause; may repeat once not acutely ill - Mg replaced and now at 2 - Mg goal >2 and K goal of > 4 - Monitor Telemetry - Continue IVF, and once BP improved, will consider metoprolol if still requiring rate control If persistent or worsening, may consider Digoxin versus cardiology consult # SIRS criteria // Cellulitis -Patient hypotensive, tachycardic, and with leukocytosis of 13 with neutrophilic predominance and slight left shift on arrival to ED -Patient with history of chronic wounds in bilateral lower extremities due to history of significant PVD -Bilateral lower extremities are erythematous, warm to palpation, slightly tender, and with scattered superficial wounds bilaterally which could be a possible source for infection/sepsis -Given significant dehydration on exam upon arrival as well as rhythm consistent with atrial fibrillation on EKG, values for which SIRS criteria are met could also be explained by dehydration leading to hemoconcentration and hypotension secondary to hypovolemia with tachycardia secondary to atrial fibrillation; alternatively, possible sepsis could lead to sepsis -Chest x-ray negative -Blood cultures drawn and pending -Patient currently on Rocephin and daptomycin for antibiotic coverage -MRSA swab ordered. If negative, could consider discontinuing daptomycin -Continue to monitor vital signs -Monitor am labs # NATO - Given dehydrated state and improvement noted after IVF administration, suspect this was pre-renal - Had decreased UOP prior to admission - Has had UOP since admission, but not well quantified in EMR - Will place Azevedo catheter and monitor Is and Os (dual purpose since patient has limited ability to ambulate to bathroom as well) - Continue mIVF - Monitor am labs # Hyponatremia - Was only eating yogurt, ice cream, and drinking sandra prior to admission - Given patient appearing dry on exam at the time of admission as well as during evaluation today, consider her hyponatremia came as a consequence of poor PO intake of both fluids and foods - Na levels improved from 118 to 124 w/ fluid repletion and PO nutrition; no hypertonic saline used - Continue to monitor am labs # Hyperkalemia -- Resolved - Consider possible this was due to dehydration plus NATO - K improved in am labs and now wnl (4.3) # PVD // Chronic leg wounds - Patient w/ hx of LLE stents x2 due to PVD - States she follows vascular surgeon in [place] (Dr. Guanaco Pedroza) as well as wound care due to her wounds - Arterial Doppler (05/24/24): Moderate amount of atherosclerotic plaques are visualized throughout both lower extremity arteries Demonstrates chronic occlusion with collaterals of the distal right superficial femoral artery Right and left calf/foot arteries: Dampened velocities and abnormal monophasic arterial waveforms, compatible with high-grade peripheral arterial disease Soft tissue edema - Continue ASA/Plavix (patient was non-adherent prior to admission) - Wound care consulted # Alcohol abuse disorder - Drinks 5-6 shots of sandra - Last drink was yesterday morning, per patient - States she uses alcohol when she has significant neuropathic pain and occasionally in social situations. - AWSS protocol ordered # Transaminitis - AST at time of admission was 46; ALT wnl - Alk phos elevated and T. Bili was 3.6 - am labs showed improvement in AST/ALT and alk phos; t.bili now at 2.2 with direct bili of 1.1 - Monitor am labs # Hepatic steatosis - Noted on Renal US - May also give explanation for mild transaminitis noted on admission labs - Given hx of alcohol use disorder, consider likely this is related to EtOH use - Monitor am labs to ensure LFTs improve # Intertrigo - Area under bilateral breasts humid and rash consistent with possible candidal infection - Nystatin ordered # Petechiae - Noted over her face and UE - Does not recall any trauma or recent illness that may explain these lesions - Given current presenting sxs (SIRS), will add CMV and EBV screening labs since these may be potential causes of petechiae -Also pending Rickettsia, Q fever, and typhus screen results Dispo: Achieve rate control, Identify and coordinate abx for possible Sepsis Diet: HH VTE ppx: Heparin FULL CODE Admission and Anticipated Discharge Date Admission Date: May 24, 2024 Supervising Physician Co-Signing Physician Notes Attending attestation Pt seen and examined in concert with Dr. Garrison. In agreement with the documented findings as noted in the resident documentation with any exceptions or additions as noted here. History unobtainable at time of examination due to sedation. On examination, S1/S2 nl RRR no MCG. CTAB. Abd NT/ND BS+ve. Extensive papular rash with excoriated lesions on the face SIRS/Sepsis in the setting of cellulitis as potential source - s/p bolus and labs in the ED. Repeat bolus in AM with improved BP. Cx pending, continue empiric abx therapy. Atrial fibrillation with RVR - telemetry monitoring - TTE as noted - if BP improves following hydration, consider rate control with metoprolol. Anticoagulation w/ apixaban for unknown initiation of arrhythmia. Chronic lower extremity with leg wounds and PVD - wound care consult - continue clopidogrel, abx therapy as above. Else see resident documentation as noted. Subjective Patient lying in bed and appeared uncomfortable with occasional twitching which she states is due to shooting pains going up both of her legs. No chest pain, SOB, fever, chills, N/V/D at the time of evaluation. Physical Exam Physical Exam: GENERAL: AAOx3, afebrile, uncomfortable, NAD HEAD: scattered violaceous scabbed over lesions that are subcentimeter in size on her face (petechiae?) CHEST: Symmetric chest expansions with respirations, scattered petechiae and erythematous linear rash CARDIO: irregular, no r/m/g PULMONARY: CTA b/l, normal respiratory effort, normal respiratory effort GI: soft, nontender : no Azevedo EXTREMITIES: bilateral LE covered by bandages that were saturated with yellowish fluid L>R, b/l feet with skin darkening and swollen toes, please refer to image in EMR from today to see b/l LE wounds and skin changes SKIN: erythematous rash under bilateral breasts with satellite lesions, sweat/humidity accumulation under b/l breasts, facial petechiae as mentioned above, linear erythematous rash over thighs, chest, and back Results & Data Results & Data Vital Signs (Past 12 Hours) Vital Signs Temp Pulse Pulse Resp BP Pulse Ox O2 Del Method 05/25/24 08:20 36.7 C 125 H 18 96/43 L 99 Room Air 05/25/24 05:00 37.1 C 132 H 20 97/61 L 97 Room Air 05/24/24 23:15 110 H 05/24/24 23:00 36.4 C L 117 H 19 117/80 98 Room Air Resident Activity Tracking Resident Involvement: Resident Care Provided Care Provided: Adult Hospital Medicine
--- NOTE | 2024-05-25 12:10 | XCELERA ---
[id number]
[2024-05-25 13:38] LABS: Appearance Urine Clear (Clear); Bacteria Urine Automated None Seen (None Seen); Bilirubin Urine 1+ (Negative); Blood Urine Negative (Negative); Calcium Oxalate Crystals Urine Present (None Prsent); Color Urine Dark Yellow; Glucose Urine UA Negative (Negative); Ketones Urine Trace (Negative); Leukocyte Esterase Urine Negative (Negative); Nitrite Urine Negative (Negative); Protein Urine Trace (Negative); Specific Gravity Urine 1.018 (1.000-1.030); Urobilinogen Urine Negative (Negative); WBC Urine Automated 0-5 /hpf (0-5); pH Urine 5.5 (4.5-7.5)
--- NOTE | 2024-05-25 15:12 | Electrocardiogram Report ---
Test Reason : Blood Pressure : */* mmHG Vent. Rate : 119 BPM Atrial Rate : * BPM P-R Int : * ms QRS Dur : 80 ms QT Int : 272 ms P-R-T Axes : * -12 40 degrees QTcB Int : 382 ms Atrial fibrillation with rapid ventricular response Low voltage QRS Cannot rule out Anteroseptal infarct (cited on or before 14-Mar-2016) Abnormal ECG When compared with ECG of 14-Mar-2016 16:55, Atrial fibrillation has replaced Sinus rhythm Vent. rate has increased by 49 bpm QRS voltage has decreased T wave amplitude has decreased in Inferior leads Confirmed by Mark Harrington ([id number]) on 05/25/2024 3:12:39 PM Referred By: Confirmed By: Mark Harrington
[2024-05-25] MEDS: cefTRIAXone SODIUM 1,000 MG/50 ML BAG IV SCH (20:23)
[2024-05-25] MEDS: APIXABAN 5 MG TABLET PO SCH (20:27)
[2024-05-26] MEDS: DAPTOmycin 225 MG in SYRINGE 0 ML IV SCH (02:41)
[2024-05-26] MEDS: ACETAMINOPHEN 500 MG TAB PO PRN (02:52)
[2024-05-26] MEDS: GABAPENTIN 300 MG CAP PO PRN (03:12)
[2024-05-26 06:02] LABS: Basophils # (auto) 0.04 K/uL (0.00-0.20); Basophils % (auto) 0.4 %; Eosinophils # (auto) 0.22 K/uL (0.00-0.50); Eosinophils % (auto) 2.2 %; Hematocrit (blood only) 30.2 % (37.0-47.0); Hemoglobin 10.3 g/dl (12.0-16.0); Immature Granulocytes # (auto) 0.15 K/uL (0.01-0.20); Immature Granulocytes % (auto) 1.5 %; Lymphocytes # (auto) 0.65 K/uL (1.20-3.40); Lymphocytes % (auto) 6.5 %; Mean Corpuscular Hemoglobin 33.9 pg (25.0-34.0); Mean Corpuscular Hgb Conc 34.1 g/dL (32.0-36.0); Mean Corpuscular Volume 99.3 fL (80.0-100.0); Mean Platelet Volume 8.4 fL (9.4-12.4); Monocytes # (auto) 1.14 K/uL (0.11-0.59); Monocytes % (auto) 11.4 %; Neutrophils # (auto) 7.83 K/uL (1.40-6.50); Platelet Count 135 K/uL (130-400); RDW Coefficient of Variation 14.7 % (11.5-14.5); RDW Standard Deviation 53.6 fL (36.4-46.3); Red Blood Count 3.04 M/uL (4.20-5.40); White Blood Count 10.03 K/ul (4.8-10.8)
[2024-05-26 06:17] LABS: Albumin Globulin Ratio 0.9 (0.9-2); Albumin Level 2.4 gm/dl (3.4-5.0); BUN Creatinine Ratio 32.9 (10-20); Bilirubin,Total 1.9 mg/dl (0.2-1.0); Calcium 7.1 mg/dl (8.6-10.3); Creatinine Clr Calc Pharmacy 53.8 ml/min; Globulin 2.6 gm/dl (2.5-4.0); Magnesium 1.6 mg/dl (1.7-2.4); Potassium 3.3 mmol/L (3.5-5.1)
[2024-05-26] MEDS: POTASSIUM CHLORIDE / WTR 10 MEQ/100 ML PLCT IV SCH ×2 (08:22→16:21)
[2024-05-26] MEDS: MAGNESIUM SULFATE / D5W 1 GM/100 ML BAG IV SCH ×2 (08:23→16:21)
[2024-05-26 11:48] LABS: EBV Nuclear Ag Antibody >600.00 U/mL
--- NOTE | 2024-05-26 12:49 | XRay Report ---
XR chest 1V portable HISTORY: 74 years-old Female hypoxia acute hypoxia COMPARISON: 05/24/2024 TECHNIQUE: AP view of the chest FINDINGS: No pneumothorax identified. Equivocal trace pleural effusions. No pneumothorax, pleural effusion or o vert pulmonary edema. Degenerative changes of the shoulders and spine. Large degenerative related loo se bodies are noted within the bilateral glenohumeral joints. Surgical clips project over the right n sarkis. IMPRESSION: Cardiomegaly with pulmonary vascular congestion with possible trace pleural effusions. ACT 112: Negative or not required by law. The above report was generated using voice recognition software. It may contain grammatical, syntax o r spelling errors. Electronically signed by: Carlos Jackson M.D. 05/26/2024 12:47 PM
[2024-05-26 14:07] LABS: Hepatitis A Antibody IgM NON-REACTIVE (NON-REACTIVE); Hepatitis B Core Antibody IgM NON-REACTIVE (NON-REACTIVE)
[2024-05-26] MEDS: NOREPINEPHRINE/D5W 4 MG/250 ML PLCT IV SCH (14:20)
[2024-05-26] MEDS ORDERED: STAT IV Infusion **Titration per Protocol STA ×2 (14:36→14:46)
[2024-05-26] MEDS: NOREPINEPHRINE/D5W 4 MG/250 ML IV ONE (14:37)
[2024-05-26] MEDS ORDERED: NOREPINEPHRINE/D5W 4 MG/250 ML PLCT IV SCH (14:46)
[2024-05-26] MEDS ORDERED: LORATADINE 10 MG TAB PO PRN (14:46)
--- NOTE | 2024-05-26 14:52 | Medical Student Progress Note ---
Date of Service May 26, 2024 Assessment & Plan (1) Peripheral vascular disease: (2) Abnormal LFTs: (3) Rash: (4) Leukocytosis: (5) Cellulitis: (6) Atrial fibrillation with rapid ventricular response: (7) Acute renal failure: (8) Acute hyponatremia: (9) Acute hyperkalemia: (10) Alcohol abuse: (11) Dehydration: (12) Hepatic steatosis: (13) Intertrigo: (14) Petechiae: Plan Patient is a 74-year-old female with past medical history of hypertension, peripheral vascular disease status post right CEA and stents x 2 in the left lower extremity who was sent to the emergency department by her wound care doctor after abnormal findings in lab work. On arrival to emergency department, patient was found to be in A-fib with RVR, and also was meeting SIRS criteria due to tachycardia, hypotension, and leukocytosis. Decision was made to admit patient. # New onset A-fib with Hypotension - Patient states she had been told in the past she has "a weird rhythm" and was on Atenolol 25 mg at home for which she believed was BP controlled - Stopped Atenolol 25 mg around 01/2024 due to low blood pressures at home - In a-fib w/ RVR in the ED and given Metoprolol 2.5 mg due to low BP - Asymptomatic - Ordered TTE (05/25/24): normal LV systolic function, mildly dilated left and right atria, no valvular disease, EF of 60-65% - TSH ~5 and T4 of ~1, so little concern for thyroid disease as a cause; may repeat once not acutely ill - Mg now at 1.6; replacing - K now at 3.3; replacing - Mg goal >2 and K goal of > 4 - Monitor Telemetry - Hold IVF due to bilateral hand puffiness and possible mild crackles on lung auscultation. Once BP improved, will consider metoprolol if still requiring rate control If persistent or worsening, may consider Digoxin versus cardiology consult -Transition to ICU for pressure maintenance. # SIRS criteria // Cellulitis - WBC has decreased from 13.61 on admission to 10.03 today. -Patient with history of chronic wounds in bilateral lower extremities due to history of significant PVD -Bilateral lower extremities are erythematous, warm to palpation, slightly tender, and with scattered superficial wounds bilaterally which could be a possible source for infection/sepsis -Given significant dehydration on exam upon arrival as well as rhythm consistent with atrial fibrillation on EKG, values for which SIRS criteria are met could also be explained by dehydration leading to hemoconcentration and hypotension secondary to hypovolemia with tachycardia secondary to atrial fibrillation; alternatively, possible sepsis could lead to sepsis -Chest x-ray negative -Blood cultures drawn and pending -Patient currently on Rocephin and daptomycin for antibiotic coverage -MRSA swab is positive -Continue to monitor vital signs -Monitor am labs # NATO - Given dehydrated state and improvement noted after IVF administration, suspect this was pre-renal - Had decreased UOP prior to admission - Has had UOP since admission, but not well quantified in EMR - Will place Azevedo catheter and monitor Is and Os (dual purpose since patient has limited ability to ambulate to bathroom as well) - Monitor am labs # Hyponatremia - Was only eating yogurt, ice cream, and drinking sandra prior to admission - Given patient appearing dry on exam at the time of admission as well as during evaluation today, consider her hyponatremia came as a consequence of poor PO intake of both fluids and foods - Na levels improved from 118 to 127 w/ fluid repletion and PO nutrition; no hypertonic saline used - Continue to monitor am labs # Hyperkalemia -- Resolved - Consider possible this was due to dehydration plus NATO - K decreased from 5.8-3.3 # PVD // Chronic leg wounds - Patient w/ hx of LLE stents x2 due to PVD - States she follows vascular surgeon in [place] (Dr. Guanaco Pedroza) as well as wound care due to her wounds - Arterial Doppler (05/24/24): Moderate amount of atherosclerotic plaques are visualized throughout both lower extremity arteries Demonstrates chronic occlusion with collaterals of the distal right superficial femoral artery Right and left calf/foot arteries: Dampened velocities and abnormal monophasic arterial waveforms, compatible with high-grade peripheral arterial disease Soft tissue edema - Continue ASA/Plavix (patient was non-adherent prior to admission) - Wound care consulted # Alcohol abuse disorder - Drinks 5-6 shots of sandra - Last drink was morning prior to admission, per patient - States she uses alcohol when she has significant neuropathic pain and occasionally in social situations. - AWSS protocol ordered # Transaminitis -AST at time of admission was 46, now within normal limits at 38 -ALT wnl -Alk phos 149 on admission, now wnl at 88 -t. bili 3.6 on admission, now 1.9 - Monitor am labs # Hepatic steatosis - Noted on Renal US - May also give explanation for mild transaminitis noted on admission labs - Given hx of alcohol use disorder, consider likely this is related to EtOH use - Monitor am labs to ensure LFTs improve # Intertrigo - Area under bilateral breasts humid and rash consistent with possible candidal infection - Nystatin ordered # Positive EBV - petechiae noted over her face and UE - Does not recall any trauma or recent illness that may explain these lesions - Given current presenting sxs (SIRS) -Supportive therapy at this time -May consider outpatient treatment with acyclovir after acute issues are stabilized. Dispo: Achieve rate control, Identify and coordinate abx for possible Sepsis Diet: HH VTE ppx: Heparin FULL CODE Admission and Anticipated Discharge Date Admission Date: May 24, 2024 Supervising Attestation Attending attestation Pt seen and examined in concert with [place]. Dr. Whalen. In agreement with the documented findings as noted in the resident documentation with any exceptions or additions as noted here. Patient is more arousable today to voice and light contact, though is somewhat difficult to communicate with. She denies any pain on inquiry. On examination, S1/S2 nl IRR no MCG. Lungs with decreased breath sounds at bilateral bases with coarse breath sounds noted bilateral. Abd NT/ND BS +ve. Unable to assess orientation. Bilateral upper extremitity mildly pitting edema to the forearm worsened from previous. VS with MAP in the 70s, stable to somewhat decreased from previous. WBC downtrended to 10.03. Sodium stable at 127, improved from admission. Acute hypoxic respiratory failure - O2 per protocol. Avoid combinatory sedating medications re: pain control and concern for etOH Atrial fibrillation with decreasing BP in the setting of HFpEF - ICU consult - for maintaining pressures in the setting of suspected sepsis from lower extremity source. SIRS/Sepsis with concern for lower extremity source - wound care consult - vascular consult held due to ongoing cardiovascular issues. Broaden abx coverage, follow up cultures. Electrolyte abnormalities - repeletion with potassium, magnesium and trend BMP, Mg+ daily PVD with lower extremity wounds, chronic, with cellulitis - infection management as above, vascular consult following hemodynamic stability and improved infection EtOH use, chronic, exacerbated - previously uptitrated per patient and family past the normal 3-6 shots of sandra for pain control. AWSS with lorazepam with cautious use and close monitoring. Else see resident/student documentation as noted. Total attending physician time spent with this patient's direct care and coordination on this day: 55 minutes. Subjective Patient was asleep upon entering the room. She awoke and remained very sleepy throughout the assessment. Her main concern was the pain in both of her legs. She was also very thirsty and just wanted to rest. Review of Systems Review of Systems: Limited ROS due to patient being difficult to arouse. Physical Exam 2 Constitutional: Very drowsy. Oriented to person and place. Respiratory: Coarse lung sounds bilaterally Cardiovascular: tachycardic, irregular rhythm. Without murmurs, rubs, or gallops Bilateral hands are puffy. Skin: Scattered, non-grouped, violaceous, punctuate, scabbed over lesions on the face. Erythematous rash under bilateral breasts with satellite lesions. Bilateral LE wounds covered with bandages. Chronic wounds that are seeping. Toes are dark, erythematous, swollen. Open wound on bottom of left foot. Results & Data Vital Signs (Past 12 Hours) Vital Signs Temp Pulse Pulse Resp BP Pulse Ox O2 Del Method 05/26/24 10:24 37.2 C 113 H 20 91/54 L 94 Room Air 05/26/24 02:50 106 H 93/59 L 05/26/24 02:49 102 H 88/63 L 05/26/24 02:47 36.3 C L 102 H 17 95/59 L 100 Room Air 05/26/24 00:00 116 H Diagnostic Findings Echocardiogram: left ventricular systolic function is normal Mild left ventricular concentric hypertrophy Mild bilateral atria dilation No significant heart valve abnormalities Resident Activity Tracking Resident Involvement: Resident Care Provided Care Provided: Adult [facility] Medicine Resident Supervision Co-Signing Physician Notes Resident Attestation I was personally present during medical student and patient encounter and independently interviewed and examined the patient and verified the saxena history and physical, reviewed labs and image studies, discussed the case with Von Whalen, and agree with the above mentioned findings and care plan. Patient with blood pressures that have been in hypotensive range, with most recent being 80s systolic and high 40s diastolic. Patient has been drowsy but arousable and confused. Labs with improving WBC count and blood cultures have remained negative. Bilateral LE with chronic wounds that are seeping. To exam patient appears slightly fluid overloaded with some puffiness in her hands and face, as well as mild crackles on exam. CXR w/ possible trace pleural effusions. Due to hx of HFpEF w/ exam findings, held off of fluid boluses to manage BP. Discussed case with machine stonecutter licensed psychologist director due to concern of progressively worsening hypotension in the setting of possible infection. Patient to be transferred to ICU. Antibiotics changed from Ceftriaxone/Vancomycin to Cefepime/Vancomycin as well as Clindamycin for antitoxin effect. Patient in afib but now with better rate control (HR has been between 80s and 120s). No beta blockers given since Metoprolol tartrate 2.5 mg in the ED at time of arrival. Continue to monitor telemetry. NATO resolved (Cr. ~0.8) Otherwise as above.
--- NOTE | 2024-05-26 14:58 | Critical Care Consultation ---
Date of Consultation May 26, 2024 Assessment & Plan (1) Severe sepsis: Reason Critically Ill: 74-year-old female with severe sepsis versus septic shock requiring vasoactive medication administration PLAN: Neuro: Acute encephalopathy Alcohol use disorder -Currently more consistent with a hypoactive state, probable related to the metabolic disturbances and infection versus typical hyperactive state associated with alcohol withdraw -Continue alcohol withdrawal severity scoring Resp: [] - [] CV: Hypotension -Suspect secondary to sepsis Atrial fibrillation -Systemic anticoagulation with apixaban -Reported home atenolol use Peripheral vascular disease -Reviewed arterial duplex Fluids/Renal: Hyponatremia -Decreased serum osmolality and low urine osmolality April 8.4% -Suspect multifactorial related to poor solute intake/Poto trae/ATN versus intrinsic renal disease Hypokalemia: Mild: 40 mEq potassium chloride IV Acute kidney injury: Unknown baseline significant improvement -Reviewed renal ultrasound: No ureteral jets Hypomagnesemia: 2 g IV ID: Bilateral lower extremity complicated send skin and soft tissue infection -On daptomycin and Rocephin -Expanding coverage to include Zosyn (discontinuing cefepime) clindamycin, increasing daptomycin to 6 mg/kg -Bilateral lower extremity imaging and assistance of evaluation for osteo vs gas formation -General Surgery consult GI/Nutrition: Transaminitis noted on admission has resolved N.p.o. Heme: Anemia: Not otherwise specified DVT prophylaxis: On apixaban, will transition to systemic heparin IV without bolus Endocrine: ICU hyperglycemia protocol Elevated TSH with reasonable T4: Sick euthyroid -Check random cortisol Vascular access: Peripheral IV Code Status: Full code Disposition: ICU (2) Acute renal failure: (3) Atrial fibrillation with rapid ventricular response: History of Present Illness Reason for Consultation: Possible sepsis, hypotension Attending Physician: Mark Perez MD History of Present Illness Patient is a 74-year-old female with a significant past medical history of peripheral vascular disease, hypertension, daily alcohol use, longstanding history of bilateral lower extremity wounds. Patient received IV fluids for atrial fibrillation with rapid ventricular response in the ED. She was admitted to the hospital. She has seen wound care and required IV analgesics for bilateral lower extremity pain related to the cellulitis as well as received Ativan for possible alcohol withdrawal. With regards to the alcohol withdraw she drinks 3-6 drinks of sandra daily, no history of alcohol withdraw. Last drink was prior to arrival 48 hours ago. She is normally seen in [place] by her primary care doctor. The present time the patient is believed to be new onset A-fib, however review of records report possible prior arrhythmia and was on atenolol 25 mg. Patient was started on Rocephin and daptomycin for bilateral lower extremity cellulitis, blood cultures are pending. Reports patient was not eating high nutrition foods eating only yogurt, ice cream and drinking sandra. Hyponatremia slowly improved. I was notified by the hospitalist medicine service of the patient's decreased blood pressure. She will be started on vasoactive medications for blood pressure support and transferred to the ICU. During my evaluation the patient was largely somnolent and not able to communicate history. So history is obtained from prior records. Allergies Allergy/AdvReac Type Severity Reaction Status Date / Time No Known Drug Allergies Allergy Unknown Verified 05/24/24 19:49 Home Medications Medication Instructions Recorded Confirmed Type acetaminophen 500 mg tablet 1,000 mg PO Q8H PRN Pain 05/24/24 05/24/24 History (Tylenol Extra Strength) aspirin 500 mg tablet 1,000 mg PO Q6H PRN Pain 05/24/24 05/24/24 History atenolol 25 mg tablet 25 mg PO BID 05/24/24 05/24/24 History clopidogrel 75 mg tablet 75 mg PO DAILY 05/24/24 05/24/24 History ezetimibe 10 mg tablet 10 mg PO DAILY 05/24/24 05/24/24 History hydrochlorothiazide 12.5 mg tablet 0 mg PO DAILY 05/24/24 05/24/24 History ibuprofen 200 mg capsule (Advil 400 mg PO Q6H PRN Pain 05/24/24 05/24/24 History Liqui-Gel) loratadine 10 mg tablet (Claritin) 10 mg PO QAM PRN allergies 05/24/24 05/24/24 History magnesium oxide 400 mg PO DAILY 05/24/24 05/24/24 History potassium chloride 10 mEq 10 meq PO DAILY 05/24/24 05/24/24 History tablet,extended release(part/cryst) (Klor-Con M) Patient History Medical History Carotid artery disease s/p right CEA Peripheral vascular disease s/p stenting to LLE x 2 Hypertension Surgical History H/O carotid endarterectomy S/P TKR (total knee replacement) Family History Other Hypertension Parkinson disease Social History Smoking Status: Never smoker Second Hand Exposure: No; Do You Dip or Chew Tobacco: No; Hx Alcohol Use: Yes Alcohol type: hard liquor Hx Substance Use: No Preferred Language: Pashto Communication Ability: Impaired Furnace Door Tender Required: No Beliefs That Will Affect Care: None Current Living Situation: Alone Feels Safe at Home: Yes Assistive Devices: Cane and Walker Review of Systems Review of Systems: Unobtainable due to reduced consciousness Physical Exam Physical Exam: General: Glascow Coma Scale: Eyes: 2, Verbal 3, Motor 5, Total 10. -Mouse like odor emanating from right lower extremity Skin: Numerous excoriations bilateral lower extremities seen by wound please refer to their documentation for further details. Head: Atraumatic Ears, nose, mouth and throat: airway patent Cardiovascular: Decreased peripheral perfusion, irregularly irregular rhythm, S1-S2 Respiratory: no respiratory distress Gastrointestinal: Non distended Musculoskeletal: Removed bilateral dressings. No obvious crepitance, no obvious erysipelas however there is purulant material, Results & Data Results & Data Vital Signs (Past 12 Hours) Vital Signs Temp Pulse Pulse Resp BP BP Pulse Ox 05/26/24 14:00 94 H 0 L 94 05/26/24 13:51 93 H 0 L 96 05/26/24 13:33 101 H 0 L 93 05/26/24 13:21 84 0 L 93 05/26/24 13:06 83/49 L 05/26/24 12:51 102 H 0 L 92 05/26/24 12:42 93 H 0 L 94 05/26/24 12:36 88 0 L 94 05/26/24 12:24 84 0 L 97 05/26/24 12:12 92 H 0 L 90 05/26/24 12:03 96 H 0 L 90 05/26/24 11:46 37.2 C 05/26/24 11:42 103 H 0 L 93 05/26/24 11:41 74/54 L 05/26/24 11:41 82/52 L 05/26/24 11:39 0 L 05/26/24 11:30 98 H 0 L 05/26/24 11:24 94 H 0 L 05/26/24 11:12 83 0 L 05/26/24 11:00 106 H 0 L 05/26/24 10:57 84 0 L 05/26/24 10:45 93 H 0 L 05/26/24 10:33 0 L 05/26/24 10:24 37.2 C 113 H 20 91/54 L 94 05/26/24 10:21 99 H 0 L 05/26/24 10:15 128 H 0 L 05/26/24 10:09 110 H 0 L 05/26/24 09:57 113 H 16 05/26/24 09:56 91/54 L 05/26/24 09:56 91/54 L 05/26/24 09:48 22 05/26/24 09:43 96/70 L 05/26/24 09:43 96/70 L 05/26/24 09:43 96/70 L 05/26/24 09:42 103 H 17 05/26/24 09:30 91 H 21 05/26/24 09:03 100 H 14 05/26/24 08:51 88 15 05/26/24 08:48 76 9 L 05/26/24 08:24 104 H 13 05/26/24 08:03 117 H 13 05/26/24 07:36 106 H 22 05/26/24 07:21 99 H 14 05/26/24 06:57 96 H 8 L 05/26/24 06:24 101 H 13 05/26/24 06:18 88 14 05/26/24 06:00 97 H 10 L 05/26/24 05:51 110 H 11 L 05/26/24 05:48 91 H 11 L 05/26/24 05:33 102 H 13 05/26/24 05:24 90 13 05/26/24 05:18 79 13 05/26/24 05:00 94 H 14 05/26/24 04:51 87 13 05/26/24 04:42 95 H 14 05/26/24 04:36 97 H 13 05/26/24 04:21 87 13 05/26/24 04:15 95 H 10 L 05/26/24 04:06 98 H 14 05/26/24 03:51 96 H 17 05/26/24 03:42 90 7 L 05/26/24 03:15 102 H 17 05/26/24 03:00 97 H 14 96 05/26/24 02:50 106 H 93/59 L 05/26/24 02:49 102 H 88/63 L 05/26/24 02:47 36.3 C L 102 H 17 95/59 L 100 O2 Del Method 05/26/24 14:00 05/26/24 13:51 05/26/24 13:33 05/26/24 13:21 05/26/24 13:06 05/26/24 12:51 05/26/24 12:42 05/26/24 12:36 05/26/24 12:24 05/26/24 12:12 05/26/24 12:03 05/26/24 11:46 05/26/24 11:42 05/26/24 11:41 05/26/24 11:41 05/26/24 11:39 05/26/24 11:30 05/26/24 11:24 05/26/24 11:12 05/26/24 11:00 05/26/24 10:57 05/26/24 10:45 05/26/24 10:33 05/26/24 10:24 Room Air 05/26/24 10:21 05/26/24 10:15 05/26/24 10:09 05/26/24 09:57 05/26/24 09:56 05/26/24 09:56 05/26/24 09:48 05/26/24 09:43 05/26/24 09:43 05/26/24 09:43 05/26/24 09:42 05/26/24 09:30 05/26/24 09:03 05/26/24 08:51 05/26/24 08:48 05/26/24 08:24 05/26/24 08:03 05/26/24 07:36 05/26/24 07:21 05/26/24 06:57 05/26/24 06:24 05/26/24 06:18 05/26/24 06:00 05/26/24 05:51 05/26/24 05:48 05/26/24 05:33 05/26/24 05:24 05/26/24 05:18 05/26/24 05:00 05/26/24 04:51 05/26/24 04:42 05/26/24 04:36 05/26/24 04:21 05/26/24 04:15 05/26/24 04:06 05/26/24 03:51 05/26/24 03:42 05/26/24 03:15 05/26/24 03:00 05/26/24 02:50 05/26/24 02:49 05/26/24 02:47 Room Air Critical Care Results & Data Vital Signs (Past 12 Hours) Vital Signs Temp Pulse Pulse Resp BP BP Pulse Ox 05/26/24 14:35 88/63 L 05/26/24 14:33 91 H 0 L 96 05/26/24 14:31 101/58 L 05/26/24 14:31 101/58 L 05/26/24 14:30 88 0 L 93 05/26/24 14:24 88 0 L 90 05/26/24 14:20 56/39 L 05/26/24 14:20 56/39 L 05/26/24 14:06 92 H 0 L 95 05/26/24 14:00 94 H 0 L 94 05/26/24 13:51 93 H 0 L 96 05/26/24 13:33 101 H 0 L 93 05/26/24 13:21 84 0 L 93 05/26/24 13:06 83/49 L 05/26/24 12:51 102 H 0 L 92 05/26/24 12:42 93 H 0 L 94 05/26/24 12:36 88 0 L 94 05/26/24 12:24 84 0 L 97 05/26/24 12:12 92 H 0 L 90 05/26/24 12:03 96 H 0 L 90 05/26/24 11:46 37.2 C 05/26/24 11:42 103 H 0 L 93 05/26/24 11:41 74/54 L 05/26/24 11:41 82/52 L 05/26/24 11:39 0 L 05/26/24 11:30 98 H 0 L 05/26/24 11:24 94 H 0 L 05/26/24 11:12 83 0 L 05/26/24 11:00 106 H 0 L 05/26/24 10:57 84 0 L 05/26/24 10:45 93 H 0 L 05/26/24 10:33 0 L 05/26/24 10:24 37.2 C 113 H 20 91/54 L 94 05/26/24 10:21 99 H 0 L 05/26/24 10:15 128 H 0 L 05/26/24 10:09 110 H 0 L 05/26/24 09:57 113 H 16 05/26/24 09:56 91/54 L 05/26/24 09:56 91/54 L 05/26/24 09:48 22 05/26/24 09:43 96/70 L 05/26/24 09:43 96/70 L 05/26/24 09:43 96/70 L 05/26/24 09:42 103 H 17 05/26/24 09:30 91 H 21 05/26/24 09:03 100 H 14 05/26/24 08:51 88 15 05/26/24 08:48 76 9 L 05/26/24 08:24 104 H 13 05/26/24 08:03 117 H 13 05/26/24 07:36 106 H 22 05/26/24 07:21 99 H 14 05/26/24 06:57 96 H 8 L 05/26/24 06:24 101 H 13 05/26/24 06:18 88 14 05/26/24 06:00 97 H 10 L 05/26/24 05:51 110 H 11 L 05/26/24 05:48 91 H 11 L 05/26/24 05:33 102 H 13 05/26/24 05:24 90 13 05/26/24 05:18 79 13 05/26/24 05:00 94 H 14 05/26/24 04:51 87 13 05/26/24 04:42 95 H 14 05/26/24 04:36 97 H 13 05/26/24 04:21 87 13 05/26/24 04:15 95 H 10 L 05/26/24 04:06 98 H 14 05/26/24 03:51 96 H 17 05/26/24 03:42 90 7 L 05/26/24 03:15 102 H 17 05/26/24 03:00 97 H 14 96 O2 Del Method 05/26/24 14:35 05/26/24 14:33 05/26/24 14:31 05/26/24 14:31 05/26/24 14:30 05/26/24 14:24 05/26/24 14:20 05/26/24 14:20 05/26/24 14:06 05/26/24 14:00 05/26/24 13:51 05/26/24 13:33 05/26/24 13:21 05/26/24 13:06 05/26/24 12:51 05/26/24 12:42 05/26/24 12:36 05/26/24 12:24 05/26/24 12:12 05/26/24 12:03 05/26/24 11:46 05/26/24 11:42 05/26/24 11:41 05/26/24 11:41 05/26/24 11:39 05/26/24 11:30 05/26/24 11:24 05/26/24 11:12 05/26/24 11:00 05/26/24 10:57 05/26/24 10:45 05/26/24 10:33 05/26/24 10:24 Room Air 05/26/24 10:21 05/26/24 10:15 05/26/24 10:09 05/26/24 09:57 05/26/24 09:56 05/26/24 09:56 05/26/24 09:48 05/26/24 09:43 05/26/24 09:43 05/26/24 09:43 05/26/24 09:42 05/26/24 09:30 05/26/24 09:03 05/26/24 08:51 05/26/24 08:48 05/26/24 08:24 05/26/24 08:03 05/26/24 07:36 05/26/24 07:21 05/26/24 06:57 05/26/24 06:24 05/26/24 06:18 05/26/24 06:00 05/26/24 05:51 05/26/24 05:48 05/26/24 05:33 05/26/24 05:24 05/26/24 05:18 05/26/24 05:00 05/26/24 04:51 05/26/24 04:42 05/26/24 04:36 05/26/24 04:21 05/26/24 04:15 05/26/24 04:06 05/26/24 03:51 05/26/24 03:42 05/26/24 03:15 05/26/24 03:00 Lab & Micro Results (Past 24 Hours) RBC 3.04 M/uL (4.20-5.40) L 05/26/24 WBC 10.03 K/ul (4.8-10.8) 05/26/24 Hgb 10.3 g/dl (12.0-16.0) L 05/26/24 Hct 30.2 % (37.0-47.0) L 05/26/24 MCV 99.3 fL (80.0-100.0) 05/26/24 MCH 33.9 pg (25.0-34.0) 05/26/24 MCHC 34.1 g/dL (32.0-36.0) 05/26/24 RDW Standard Deviation 53.6 fL (36.4-46.3) H 05/26/24 RDW Coefficient of Variation 14.7 % (11.5-14.5) H 05/26/24 Plt Count 135 K/uL (130-400) 05/26/24 MPV 8.4 fL (9.4-12.4) L 05/26/24 Neutrophils (%) (Auto) 78.0 % 05/26/24 Lymphocytes (%) (Auto) 6.5 % 05/26/24 Monocytes # (Auto) 1.14 K/uL (0.11-0.59) H 05/26/24 Eosinophils # (Auto) 0.22 K/uL (0.00-0.50) 05/26/24 Immature Granulocyte % (Auto) 1.5 % 05/26/24 Neutrophils # (Auto) 7.83 K/uL (1.40-6.50) H 05/26/24 Lymphocytes # (Auto) 0.65 K/uL (1.20-3.40) L 05/26/24 Monocytes # (Auto) 1.14 K/uL (0.11-0.59) H 05/26/24 Eosinophils # (Auto) 0.22 K/uL (0.00-0.50) 05/26/24 Basophils # (Auto) 0.04 K/uL (0.00-0.20) 05/26/24 Immature Granulocyte # (Auto) 0.15 K/uL (0.01-0.20) 4 Na 127 mmol/L (136-145) L 05/26/24 K 3.3 mmol/L (3.5-5.1) L 05/26/24 Cl 97 mmol/L (98-107) L 05/26/24 CO2 22 mmol/L (21-32) 05/26/24 Anion Gap 8 (3-11) 05/26/24 BUN 28 mg/dl (6-23) H 05/26/24 Creatinine 0.85 mg/dl (0.6-1.2) 05/26/24 BUN/Creatinine Ratio 32.9 (10-20) H 05/26/24 Glu 92 mg/dl (70-99(Fasting)) 05/26/24 Ca 7.1 mg/dl (8.6-10.3) L 05/26/24 Total Bilirubin 1.9 mg/dl (0.2-1.0) H 05/26/24 AST 38 U/L (13-39) 05/26/24 ALT 33 U/L (7-52) 05/26/24 Alkaline Phosphatase 88 U/L (34-104) 05/26/24 TP 5.0 gm/dl (6.0-8.3) L 05/26/24 Albumin 2.4 gm/dl (3.4-5.0) L 05/26/24 Globulin 2.6 gm/dl (2.5-4.0) 05/26/24 Albumin/Globulin Ratio 0.9 (0.9-2) 05/26/24 Mg 1.6 mg/dl (1.7-2.4) L 05/26/24 05:17 Calcium Level 7.1 mg/dl (8.6-10.3) L 05/26/24 05:17 Venous Blood pH 7.38 (7.36-7.41) 05/26/24 15:15 Venous Blood Partial Pressure CO2 36 mmHg (38-50) L 05/26/24 15 :15 Venous Blood Partial Pressure O2 40 mmHg 05/26/24 15:15 Venous Blood HCO3 21 mmol/L 05/26/24 15:15 Venous Blood Base Excess -3.3 mEq/L 05/26/24 15:15 Venous Blood Oxygen Saturation 68.0 % 05/26/24 15:15 Microbiology 05/24/24 19:11 Aerobic Blood Culture - Preliminary Blood No growth in Aerobic bottle after 24 hours. Anaerobic Blood Culture - Preliminary No growth in Anaerobic bottle after 24 hours. 05/24/24 19:13 Aerobic Blood Culture - Preliminary Blood No growth in Aerobic bottle after 24 hours. Anaerobic Blood Culture - Preliminary No growth in Anaerobic bottle after 24 hours. Diagnostic Findings (Past 24 Hours) Chest X-Ray 05/26/24 11:54 XR chest 1V portable HISTORY: 74 years-old Female hypoxia acute hypoxia COMPARISON: 05/24/2024 TECHNIQUE: AP view of the chest FINDINGS: No pneumothorax identified. Equivocal trace pleural effusions. No pneumothorax, pleural effusion or overt pulmonary edema. Degenerative changes of the shoulders and spine. Large degenerative related loose bodies are noted within the bilateral glenohumeral joints. Surgical clips project over the right neck. IMPRESSION: Cardiomegaly with pulmonary vascular congestion with possible trace pleural effusions. ACT 112: Negative or not required by law. The above report was generated using voice recognition software. It may contain grammatical, syntax or spelling errors. Electronically signed by: Carlos Jackson M.D. 05/26/2024 12:47 PM I & O Totals 24 Hours 05/25/24 05/26/24 05/27/24 06:59 06:59 06:59 Intake Total 2611.2 / 2611.2 3228.333 / 3228.333 741.667 / 741.667 Output Total 350 / 350 870 / 870 250 / 250 Balance 2261.2 / 2261.2 2358.333 / 2358.333 491.667 / 491.667 Cumulative 05/24/24 17:31 thru 05/26/24 14:00 Intake Total 6581.200 Output Total 1470 Balance 5111.200 RT Ventilator Mngmt (Last Documented) Ventilator Ordered Settings Respiratory Rate 0 05/26/24 14:33 Ventilator - PT Measurements Respiratory Rate 0 End-Tidal CO2 20 Coding Level of Care Code 26372 CRITICAL CARE 1ST 30-74M Additional Critical Care Time Additional 30min Critical Care Time: Yes - 71722 Total Critical Care Time: 95 Diagnoses Severe sepsis A41.9; R65.20 Acute renal failure N17.9 Atrial fibrillation with rapid ventricular response I48.91 Additional Codes Critical Care Time - Additional 30min Critical Care Time: Yes - 74316 ([id number])
[2024-05-26 15:29] LABS: Base Excess VBG -3.3 mEq/L; HCO3 VBG 21 mmol/L; PCO2 VBG 36 mmHg (38-50); PO2 VBG 40 mmHg; pH VBG 7.38 (7.36-7.41)
[2024-05-26] MEDS ORDERED: CEFEPIME 2000MG 2,000 MG/20 ML SYR IV SCH (15:30)
[2024-05-26] MEDS: PLASMA-LYTE A 1,000 ML IV ONE (15:35)
[2024-05-26] MEDS: PIPERACILLIN/TAZOBACTAM 4.5 GM/100 ML BAG IV ONE (15:39)
[2024-05-26] MEDS: CLINDAMYCIN/D5W 900 MG/50 ML BAG IV SCH (15:41)
--- NOTE | 2024-05-26 16:31 | Surgery Consultation ---
Date of Consultation May 26, 2024 Assessment & Plan (1) Severe sepsis: This is a 74yF with a PMH of alcohol abuse, HTN, and peripheral vascular disease who presented to the [facility] ED on 05/24/24 referred by her doctor for abnormal blood work. We have been consulted today for evaluation of patient's bilateral l ower extremity wounds with sepsis. Patient was transferred to the ICU today for hypotension requiring BP support. In the ICU she is with eyes closed and able to communicate intermittently when spoken too. She tells me that her wounds have been present over the last year or so. Her legs have been bothering her more recently mostly related to pain. She reports some intermittent fevers but is unable to really provide much other history. She tells me she is scared and doesn't want to keep going on like this. Her workup thus far regarding imaging of her LE's includes a duplex which showed moderate amount of atherosclerotic plaques are visualized throughout the both lower extremity arteries. Demonstrates chronic occlusion with collaterals of the distal right superficial femoral artery. Right and left calf/foot arteries: Dampened velocities and abnormal monophasic arterial waveforms, compatible with high-grade peripheral arterial disease. Today patient has become hypotensive, now in the ICU on norepi. Labs show WBC 10, Hbg 10, Na 127, K 3.3, Cr 0.8 with lactate of 2.3. Patient's vitals improving with resuscitation and pressors. Last vitals check was BP 101/66, HR 87, Resp 26, Temp 97.9f, with some documented temps of 99F around 1030-11a 11am. On exam patient is resting and appears uncomfortable and in pain when manipulating her lower extremities. She has bilateral lower extremity wounds below the knee noted. R leg appears more severe with area's of necrosis on calf and the bottom of the foot/toes, with areas of weeping bloody/serous fluid of anterior hayes and top of foot. tender to palpation throughout. L leg erythema with scabbing and wounds of lateral hayes seeping blood and yellowish fluid. Was able to doppler the Left dorsalis pedis however the R leg DP and PT were unable to easily doppler. Unfortunately do not believe any debridement of her wounds would provide source control at this time. She has documented peripheral arterial disease and in the setting of unable to doppler her RLE DP and PT we believe she would be best suited by vascular evaluation and recommend transfer to a tertiary center where they have / coverage and can manage this situation should she ultimately require some sort of amputation vs. revascularization. Continue IV abx for sepsis. Could also consider CT imaging vs CTA imaging of her bilateral LE's if stable for further evaluation. General surgery does not have much to offer her that would help her overall situation and we will recommend transfer in this case. Supervising Physician Co-Signing Physician Notes Patient seen and examined, labs and imaging reviewed, agree with above. Consulted for sepsis with right lower extremity cellulitis concerning for necrotizing soft tissue infection. She was admitted 2 days ago and her condition is worsened. Duplex noted severe peripheral vascular disease in the feet. On exam her right lower extremity has erythema with patches of sloughing of the superficial epidermis and some purpuric areas. There is no crepitus. Is very tender to palpation. Left lower extremity has a monophasic to biphasic DP and PT, right lower extremity does not have a DP or PT on Doppler. I be concerned that this is ischemia from peripheral arterial disease and the patient should be transferred for vascular surgery consult. If she does have a necrotizing soft tissue infection in the setting of severe vascular disease, debridement will not be helpful as she will not heal, and she would likely require an amputation. Per her family she is against this. Unfortunately, general surgery does not has much to offer in the situation. Would recommend transfer to a tertiary facility. This was discussed with Dr. Martin the attending rn chemical dependency. History of Present Illness Attending Physician: Mark Perez MD History of Present Illness This is a 74yF with a PMH of alcohol abuse, HTN, and peripheral vascular disease who presented to the [facility] ED on 05/24/24 referred by her doctor for abnormal blood work. We have been consulted today for evaluation of patient's bilateral lower extremity wounds with sepsis. Patient was transferred to the ICU today for hypotension requiring BP support. In the ICU she is with eyes closed and able to communicate intermittently when spoken too. She tells me that her wounds have been present over the last year or so. Her legs have been bothering her more recently mostly related to pain. She reports some intermittent fevers but is unable to really provide much other history. She tells me she is scared and doesn't want to keep going on like this. Her workup thus far regarding imaging of her LE's includes a duplex which showed moderate amount of atherosclerotic plaques are visualized throughout the both lower extremity arteries. Demonstrates chronic occlusion with collaterals of the distal right superficial femoral artery. Right and left calf/foot arteries: Dampened velocities and abnormal monophasic arterial waveforms, compatible with high-grade peripheral arterial disease. Allergies Allergy/AdvReac Type Severity Reaction Status Date / Time No Known Drug Allergies Allergy Unknown Verified 05/24/24 19:49 Home Medications Medication Instructions Recorded Confirmed Type acetaminophen 500 mg tablet 1,000 mg PO Q8H PRN Pain 05/24/24 05/24/24 History (Tylenol Extra Strength) aspirin 500 mg tablet 1,000 mg PO Q6H PRN Pain 05/24/24 05/24/24 History atenolol 25 mg tablet 25 mg PO BID 05/24/24 05/24/24 History clopidogrel 75 mg tablet 75 mg PO DAILY 05/24/24 05/24/24 History ezetimibe 10 mg tablet 10 mg PO DAILY 05/24/24 05/24/24 History hydrochlorothiazide 12.5 mg tablet 0 mg PO DAILY 05/24/24 05/24/24 History ibuprofen 200 mg capsule (Advil 400 mg PO Q6H PRN Pain 05/24/24 05/24/24 History Liqui-Gel) loratadine 10 mg tablet (Claritin) 10 mg PO QAM PRN allergies 05/24/24 05/24/24 History magnesium oxide 400 mg PO DAILY 05/24/24 05/24/24 History potassium chloride 10 mEq 10 meq PO DAILY 05/24/24 05/24/24 History tablet,extended release(part/cryst) (Klor-Con M) Patient History Medical History Carotid artery disease s/p right CEA Peripheral vascular disease s/p stenting to LLE x 2 Hypertension Surgical History H/O carotid endarterectomy S/P TKR (total knee replacement) Family History Other Hypertension Parkinson disease Social History Smoking Status: Never smoker Second Hand Exposure: No; Do You Dip or Chew Tobacco: No; Hx Alcohol Use: Yes Alcohol type: hard liquor Hx Substance Use: No Preferred Language: Nepali Communication Ability: Impaired 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: No Beliefs That Will Affect Care: None Current Living Situation: Alone Feels Safe at Home: Yes Assistive Devices: Cane and Walker Review of Systems Constitutional: + fever Respiratory: no dyspnea Cardiovascular: no chest pain Gastrointestinal: no abdominal pain Integumentary: bilateral lower extremity pain R > L with wounds Physical Exam Physical Exam: awake, eyes closed, but able to answer some questions Constitutional: + multiple small scabs/wounds on face Respiratory: on room air Gastrointestinal (Abdomen): Percussion/Palpation: abdomen soft; abdomen nontender Skin: Bilateral lower extremity wounds below the knee notes. R leg appears more severe with area's of necrosis on calf and the bottom of the foot/toes, with areas of weeping bloody/serous fluid of anterior hayes and top of foot. tender to palpation throughout. L leg erythema with scabbing and wounds of lateral hayes seeping blood and yellowish fluid. Was able to doppler the Left dorsalis pedis however the R leg DP and PT were unable to easily doppler. Results & Data Vital Signs (Past 12 Hours) Vital Signs Temp Pulse Pulse Resp BP BP Pulse Ox 05/26/24 14:35 88/63 L 05/26/24 14:33 91 H 0 L 96 05/26/24 14:31 101/58 L 05/26/24 14:31 101/58 L 05/26/24 14:30 20 05/26/24 14:30 88 0 L 93 05/26/24 14:24 88 0 L 90 05/26/24 14:20 56/39 L 05/26/24 14:20 56/39 L 05/26/24 14:06 92 H 0 L 95 05/26/24 14:00 94 H 0 L 94 05/26/24 13:51 93 H 0 L 96 05/26/24 13:33 101 H 0 L 93 05/26/24 13:21 84 0 L 93 05/26/24 13:06 83/49 L 05/26/24 12:51 102 H 0 L 92 05/26/24 12:42 93 H 0 L 94 05/26/24 12:36 88 0 L 94 05/26/24 12:24 84 0 L 97 05/26/24 12:12 92 H 0 L 90 05/26/24 12:03 96 H 0 L 90 05/26/24 12:00 16 05/26/24 11:46 99.0 F 05/26/24 11:42 103 H 0 L 93 05/26/24 11:41 74/54 L 05/26/24 11:41 82/52 L 05/26/24 11:39 0 L 05/26/24 11:30 98 H 0 L 05/26/24 11:24 94 H 0 L 05/26/24 11:12 83 0 L 05/26/24 11:00 106 H 0 L 05/26/24 10:57 84 0 L 05/26/24 10:45 93 H 0 L 05/26/24 10:33 0 L 05/26/24 10:24 99.0 F 113 H 20 91/54 L 94 05/26/24 10:21 99 H 0 L 05/26/24 10:15 128 H 0 L 05/26/24 10:09 110 H 0 L 05/26/24 10:00 14 05/26/24 09:57 113 H 16 05/26/24 09:56 91/54 L 05/26/24 09:56 91/54 L 05/26/24 09:48 22 05/26/24 09:43 96/70 L 05/26/24 09:43 96/70 L 05/26/24 09:43 96/70 L 05/26/24 09:42 103 H 17 05/26/24 09:30 91 H 21 05/26/24 09:03 100 H 14 05/26/24 08:51 88 15 05/26/24 08:48 76 9 L 05/26/24 08:24 104 H 13 05/26/24 08:03 117 H 13 05/26/24 07:36 106 H 22 05/26/24 07:21 99 H 14 05/26/24 06:57 96 H 8 L 05/26/24 06:24 101 H 13 05/26/24 06:18 88 14 05/26/24 06:00 97 H 10 L 05/26/24 05:51 110 H 11 L 05/26/24 05:48 91 H 11 L 05/26/24 05:33 102 H 13 05/26/24 05:24 90 13 05/26/24 05:18 79 13 05/26/24 05:00 94 H 14 05/26/24 04:51 87 13 05/26/24 04:42 95 H 14 05/26/24 04:36 97 H 13 O2 Del Method 05/26/24 14:35 05/26/24 14:33 05/26/24 14:31 05/26/24 14:31 05/26/24 14:30 05/26/24 14:30 05/26/24 14:24 05/26/24 14:20 05/26/24 14:20 05/26/24 14:06 05/26/24 14:00 05/26/24 13:51 05/26/24 13:33 05/26/24 13:21 05/26/24 13:06 05/26/24 12:51 05/26/24 12:42 05/26/24 12:36 05/26/24 12:24 05/26/24 12:12 05/26/24 12:03 05/26/24 12:00 05/26/24 11:46 05/26/24 11:42 05/26/24 11:41 05/26/24 11:41 05/26/24 11:39 05/26/24 11:30 05/26/24 11:24 05/26/24 11:12 05/26/24 11:00 05/26/24 10:57 05/26/24 10:45 05/26/24 10:33 05/26/24 10:24 Room Air 05/26/24 10:21 05/26/24 10:15 05/26/24 10:09 05/26/24 10:00 05/26/24 09:57 05/26/24 09:56 05/26/24 09:56 05/26/24 09:48 05/26/24 09:43 05/26/24 09:43 05/26/24 09:43 05/26/24 09:42 05/26/24 09:30 05/26/24 09:03 05/26/24 08:51 05/26/24 08:48 05/26/24 08:24 05/26/24 08:03 05/26/24 07:36 05/26/24 07:21 05/26/24 06:57 05/26/24 06:24 05/26/24 06:18 05/26/24 06:00 05/26/24 05:51 05/26/24 05:48 05/26/24 05:33 05/26/24 05:24 05/26/24 05:18 05/26/24 05:00 05/26/24 04:51 05/26/24 04:42 05/26/24 04:36 Diagnostic Findings Exam(s): US ARTERIAL BILATERAL LOWER EXTREMITIES EXAM: US Duplex Bilateral Lower Extremities Arteries CLINICAL HISTORY: Reason for exam: dusky LE bilaterally, h/o PVD. TECHNIQUE: Real-time duplex ultrasound scan of the bilateral lower extremity arteries integrating B-mode two-dimensional vascular structure, Doppler spectral analysis and color flow Doppler imaging. COMPARISON: None. FINDINGS: Reportedly markedly limited/suboptimal exam due to patient inability to cooperate with the study. Right lower extremity: Moderate amount of calcified/noncalcified plaque seen throughout. Right common femoral artery: No occlusion or significant stenosis on color flow and spectral Doppler imaging. Normal waveform. Right superficial femoral artery: Proximal/mid right SFA: No occlusion or significant stenosis on color flow and spectral Doppler imaging. Biphasic waveform. Distal right SFA chronic occlusion with collaterals visualized. Right calf/foot arteries: Dampened velocities an abnormal monophasic waveform. Left lower extremity: Moderate amount of plaque seen throughout. Left common femoral artery: No acute findings. No occlusion or significant stenosis on color flow and spectral Doppler imaging. Normal waveform. Left superficial femoral artery: Proximal left superficial femoral artery with monophasic waveform. Left calf/foot arteries: Dampened velocities and abnormal monophasic waveform. Soft tissues: Soft tissue edema. IMPRESSION: Limited/suboptimal exam. Moderate amount of atherosclerotic plaques are visualized throughout the both lower extremity arteries. Demonstrates chronic occlusion with collaterals of the distal right superficial femoral artery. Right and left calf/foot arteries: Dampened velocities and abnormal monophasic arterial waveforms, compatible with high-grade peripheral arterial disease. Electronically signed by: Vero Lord MD, DAVY 05/25/24 04:50 AM PG Care Time/CCT Total # of Minutes Spent Total Time Spent with Patient: Total time spent is greater than 50% in coordination of care (as documented) at patient's floor/unit and/or counseling patient: Coding Level of Care Code 42029 INT INP/OBS CARE MIN Diagnoses Severe sepsis A41.9; R65.20
--- NOTE | 2024-05-26 16:43 | XRay Report ---
XR tibia fibula RT 2V HISTORY: 74 years-old Female r/o osteo soft tissue injury and possible osteomyelitis COMPARISON: Right knee radiographs 08/07/2015 TECHNIQUE: 2 views of the right tibia and fibula FINDINGS: Total joint arthroplasty of the knee is unremarkable. Arterial calcifications. No acute fracture, dis location or osseous erosion. IMPRESSION: No acute osseous abnormality. ACT 112: Negative or not required by law. The above report was generated using voice recognition software. It may contain grammatical, syntax o r spelling errors. Electronically signed by: Carlos Jackson M.D. 05/26/2024 4:42 PM
--- NOTE | 2024-05-26 17:41 | XRay Report ---
XR tibia fibula LT 2V CLINICAL HISTORY: Left leg wound. Evaluate for osteomyelitis. COMPARISON: Left knee radiographs March 18, 2016. FINDINGS: Left knee arthroplasty is intact. There is no periprosthetic fracture or lucency. No erosi ons within the left tibia or fibula are identified. There are no acute fractures. IMPRESSION: No evidence for osteomyelitis within the left tibia or fibula. ACT 112: Negative or not required by law. Electronically signed by: Roverto Mckoy M.D. 05/26/2024 5:40 PM
[2024-05-26 18:03] LABS: Fibrinogen 403 mg/dl (184-400); INR 1.1 (0.9-1.1); Partial Thromboplastin Ratio 1.2; Partial Thromboplastin Time 31 Seconds (21-31); Prothrombin Time 12.3 Seconds (9.0-12.0)
[2024-05-26 20:18] LABS: BUN Creatinine Ratio 32.9 (10-20); Creatinine Clr Calc Pharmacy 60.2 ml/min; Potassium 3.9 mmol/L (3.5-5.1)
[2024-05-26 20:26] LABS: Phosphorus 1.4 mg/dl (2.5-4.9)
[2024-05-26] MEDS: ACETAMINOPHEN 1,000 MG/100 ML VIAL IV PRN (20:35)
[2024-05-26] MEDS ORDERED: SODIUM PHOSPHATE 3 MMOL/1 ML 5 ML VIAL IV ONE (20:37)
[2024-05-26] MEDS: CALCIUM CHLORIDE 10% 1,000 MG in DEXTROSE 5% 50 ML IV STA (21:11)
[2024-05-26] MEDS: SODIUM PHOSPHATE 15 MMOL in SODIUM CHLORIDE 0.9% 250 ML IV ONE (21:17)
[2024-05-26] MEDS: HEPARIN SODIUM/DEXTROSE 25,000 UNITS/500 ML BAG IV SCH (21:21)
[2024-05-26] MEDS: Heparin IV Adult Wt-Based Standard *NO* INITIAL Bolus Protocol IV ONE (21:23)
[2024-05-26] MEDS: PIPERACILLIN/TAZOBACTAM 4.5 GM/100 ML BAG IV SCH (21:34)
[2024-05-27 01:45] VITALS: TEMP 97.5
[2024-05-27] MEDS: DAPTOmycin 400 MG in SYRINGE 0 ML IV SCH (03:38)
[2024-05-27 05:22] LABS: Basophils # (auto) 0.06 K/uL (0.00-0.20); Basophils % (auto) 0.6 %; Eosinophils # (auto) 0.44 K/uL (0.00-0.50); Eosinophils % (auto) 4.5 %; Hematocrit (blood only) 29.4 % (37.0-47.0); Hemoglobin 10.5 g/dl (12.0-16.0); Immature Granulocytes # (auto) 0.21 K/uL (0.01-0.20); Immature Granulocytes % (auto) 2.2 %; Lymphocytes # (auto) 1.01 K/uL (1.20-3.40); Lymphocytes % (auto) 10.4 %; Mean Corpuscular Hemoglobin 34.5 pg (25.0-34.0); Mean Corpuscular Hgb Conc 35.7 g/dL (32.0-36.0); Mean Corpuscular Volume 96.7 fL (80.0-100.0); Mean Platelet Volume 8.4 fL (9.4-12.4); Monocytes # (auto) 1.16 K/uL (0.11-0.59); Neutrophils # (auto) 6.81 K/uL (1.40-6.50); Neutrophils % (auto) 70.3 %; Platelet Count 127 K/uL (130-400); RDW Coefficient of Variation 14.7 % (11.5-14.5); RDW Standard Deviation 52.6 fL (36.4-46.3); Red Blood Count 3.04 M/uL (4.20-5.40); White Blood Count 9.69 K/ul (4.8-10.8)
[2024-05-27 05:28] LABS: Albumin Globulin Ratio 0.9 (0.9-2); Albumin Level 2.3 gm/dl (3.4-5.0); BUN Creatinine Ratio 27.9 (10-20); Bilirubin,Total 1.7 mg/dl (0.2-1.0); Calcium 7.4 mg/dl (8.6-10.3); Creatinine Clr Calc Pharmacy 67.3 ml/min; Globulin 2.7 gm/dl (2.5-4.0); Magnesium 1.8 mg/dl (1.7-2.4); Phosphorus 2.3 mg/dl (2.5-4.9); Potassium 3.8 mmol/L (3.5-5.1)
[2024-05-27] MEDS ORDERED: POTASSIUM PHOS 3 MMOL/1 ML INFUSION IV STA (06:02)
--- NOTE | 2024-05-27 06:40 | Critical Care Progress Note ---
Date of Service May 27, 2024 Assessment & Plan (1) Severe sepsis: (2) Hepatic steatosis: (3) Alcohol abuse: (4) Cellulitis: (5) Atrial fibrillation with rapid ventricular response: Plan Reason Critically Ill: 74-year-old female with severe sepsis versus septic shock requiring vasoactive medication administration PLAN: Neuro: Acute encephalopathy Alcohol use disorder -Currently more consistent with a hypoactive state, probable related to the metabolic disturbances and infection versus typical hyperactive state associated with alcohol withdraw -Continue alcohol withdrawal severity scoring Resp: - no acute needs, saturating well on room air CV: Hypotension -Suspect secondary to sepsis -back on pressors this morning for insufficient MAP Atrial fibrillation -Systemic anticoagulation with apixaban discontinued; transitioned to heparin -Reported home atenolol use Peripheral vascular disease Fluids/Renal: Hyponatremia -Decreased serum osmolality and low urine osmolality April 8.4% -Suspect multifactorial related to poor solute intake/[place] tra[place]/ATN versus intrinsic renal disease Acute kidney injury: Unknown baseline, NATO resolved -Reviewed renal ultrasound: No ureteral jets ID: Bilateral lower extremity complicated send skin and soft tissue infection -On daptomycin and Rocephin initially -Expanded coverage to include Zosyn (discontinuing cefepime) clindamycin (to discontinue today), -Bilateral lower extremity imaging and assistance of evaluation for osteo vs gas formation; no clear signs of necrotizing fasciitis -General Surgery consulted -orthopedics consulted; pending -consulted vascular for source control, pending recs GI/Nutrition: Transaminitis noted on admission has resolved Diet; heart healthy Heme: Anemia: Not otherwise specified DVT prophylaxis: heparin IV Endocrine: ICU hyperglycemia protocol Elevated TSH with reasonable T4: Sick euthyroid -random cortisol check wnl 13 Vascular access: Peripheral IV Code Status: Full code Disposition: ICU for pressor support Admission and Anticipated Discharge Date Admission Date: May 24, 2024 Supervising Physician Co-Signing Physician Notes Dr. Espinosa was resident physician during care of patient. I separately evaluated patient for saxena portions of the history and the exam. I was present during the critical portion of medical decision making, and I discussed the case with the resident. I generally agree with the findings and plan. Patient generally improved from yesterday. Lactate has cleared, vasoactives intermittently able to be weaned off however they have been reinstituted. Need extended discussion with treatment team, I do not feel there is acute necrotizing fasciitis however I believe the source is still the lower extremities and management will be difficult. In discussions with patient's son and review of medical records there had been adamant about no amputation of the lower extremities however this is juxtaposed against extensive vascular disease which may preclude clearing of an obvious deep-seated cellulitic infection. Goals of care need to be addressed will consult palliative care to assist in developing adequate treatment plan. At this time we have a theoretical source we do not have objective culture data. Blood cultures are pending, clinically this is inconsistent with an intra- abdominal source and transaminitis have returned to normal. Continue the extensive broad-spectrum, can discontinue clindamycin as this does not appear to be necrotizing fasciitis, does not rapidly progressive. Systemic anticoagulation with heparin secondary to atrial fibrillation. Will also reengage vascular regarding peripheral vascular disease/chronic wounds/source control. I have personally spent 45 minutes of critical care time in the direct management of this patient. This is a life/limb threatening event. This includes time spent evaluating patient, direct bedside care, chart review, placing orders, interpretation of diagnostic studies, discussion with consultants, patient, and/or family members regarding treatment decisions, as well as other required patient management activities. This time is exclusive of all separately billable procedures, and teaching time and separate from and in addition to any other critical care service time. Subjective Today, pt states she is continuing to have intermittently sharp R leg pain. She states she had stents placed in her L leg a few years ago and a different vascular procedure for her femoral artery on the left July 2023. No chest pain, SOB, nausea, or vomiting. Review of Systems Review of Systems: All systems reviewed & are unremarkable except as noted in HPI & below Physical Exam Physical Exam: General: Alert and oriented, uncomfortable appearing HEENT: Normocephalic, atraumatic, Resp: Lungs clear to auscultation bilaterally, no increased work of breathing Cardio: A fib, GI: Soft and nontender, Skin: Warm, dry, bilateral legs noted to be edematous and erythematous from the knee down, shins wrapped in bandages bilaterally Results & Data Results & Data Vital Signs (Past 12 Hours) Vital Signs Temp Pulse Resp BP Pulse Ox O2 Del Method 05/27/24 03:30 81/62 L 05/27/24 03:00 86 16 97 05/27/24 03:00 82/62 L 10/04/24 02:31 99/71 L 05/27/24 02:05 100/64 05/27/24 02:00 105 H 23 98 05/27/24 01:36 92 H 20 92 05/27/24 01:30 104/76 05/27/24 01:27 90 19 99 05/27/24 01:06 102 H 21 84 L 05/27/24 01:00 36.4 C L 05/27/24 00:31 97/70 L 05/27/24 00:31 97/70 L 05/27/24 00:31 97/70 L 05/27/24 00:27 87 16 90 05/27/24 00:18 32 H 87 L 05/27/24 00:00 114/72 05/27/24 00:00 86 05/26/24 23:57 90 25 H 97 05/26/24 23:15 Room Air 05/26/24 23:00 90 25 H 90 05/26/24 23:00 105/69 05/26/24 23:00 105/69 05/26/24 22:32 81 94/77 L 05/26/24 22:30 94/77 L 05/26/24 22:18 99 H 24 98 05/26/24 22:00 24 89 L 05/26/24 22:00 36.3 C L 97 H 19 104/69 92 Room Air 05/26/24 21:30 98/67 L 05/26/24 21:03 87 17 85/46 L 91 05/26/24 20:01 36.4 C L 82 108/87 05/26/24 19:30 36.4 C L 84 18 100 05/26/24 19:30 107/66 05/26/24 19:20 Room Air 05/26/24 19:00 99/68 L Resident Activity Tracking Resident Involvement: Resident Care Provided Care Provided: Adult Hospital Medicine
[2024-05-27] MEDS: POTASSIUM PHOSPHATE 15 MMOL in SODIUM CHLORIDE 0.9% 250 ML IV ONE (06:41)
[2024-05-27 07:17] LABS: ANTI-Xa, UFH(UnfractionatedHep > 1.50 IU/ml (0.3-0.7)
[2024-05-27 10:36] LABS: ANTI-Xa, UFH(UnfractionatedHep 1.03 IU/ml (0.3-0.7)
--- NOTE | 2024-05-27 10:45 | Consultation ---
Date of Consultation May 27, 2024 Assessment & Plan (1) Peripheral vascular disease: This point with the wounds appearing how they do in the right lower extremity, revascularization is not possible. She has no motion of the foot. The best approach and recommendation due to the wounds and the lack of flow to the foot would be a right above-knee amputation. At this point the patient is not agreeable to any amputation. If she becomes agreeable would consider consulting orthopedics for an above-knee amputation. Thank you very much for letting us participate in the care of this patient. History of Present Illness Reason for Consultation: Ischemic right lower extremity, bilateral cellulitis Attending Physician: Harris Galvan DO History of Present Illness This is a 74yF with a PMH of alcohol abuse, HTN, and peripheral vascular disease who presented to the [facility] ED on 05/24/24. Vascular was consulted today for evaluation of patient's bilateral lower extremity wounds with sepsis. Patient was transferred to the ICU today for hypotension requiring BP support. She is awake and alert at this time. She claims she does walk with a walker and has some pain in both legs worse on the right than the left and mostly located about her foot when she ambulates. She cannot tell me how long her legs been reddened as a appeared today. A duplex showed patent arteries. The right side shows dampened waveforms at the distal superficial femoral artery downward. This suggests there is a occlusion of the distal superficial femoral artery popliteal and infrapopliteal arteries. Allergies Allergy/AdvReac Type Severity Reaction Status Date / Time No Known Drug Allergies Allergy Unknown Verified 05/24/24 19:49 Home Medications Medication Instructions Recorded Confirmed Type acetaminophen 500 mg tablet 1,000 mg PO Q8H PRN Pain 05/24/24 05/24/24 History (Tylenol Extra Strength) aspirin 500 mg tablet 1,000 mg PO Q6H PRN Pain 05/24/24 05/24/24 History atenolol 25 mg tablet 25 mg PO BID 05/24/24 05/24/24 History clopidogrel 75 mg tablet 75 mg PO DAILY 05/24/24 05/24/24 History ezetimibe 10 mg tablet 10 mg PO DAILY 05/24/24 05/24/24 History hydrochlorothiazide 12.5 mg tablet 0 mg PO DAILY 05/24/24 05/24/24 History ibuprofen 200 mg capsule (Advil 400 mg PO Q6H PRN Pain 05/24/24 05/24/24 History Liqui-Gel) loratadine 10 mg tablet (Claritin) 10 mg PO QAM PRN allergies 05/24/24 05/24/24 History magnesium oxide 400 mg PO DAILY 05/24/24 05/24/24 History potassium chloride 10 mEq 10 meq PO DAILY 05/24/24 05/24/24 History tablet,extended release(part/cryst) (Klor-Con M) Patient History Medical History Carotid artery disease s/p right CEA Peripheral vascular disease s/p stenting to LLE x 2 Hypertension Surgical History H/O carotid endarterectomy S/P TKR (total knee replacement) Family History Other Hypertension Parkinson disease Social History Smoking Status: Never smoker Second Hand Exposure: No; Do You Dip or Chew Tobacco: No; Hx Alcohol Use: Yes Alcohol type: hard liquor Hx Substance Use: No Preferred Language: Greenlandic Communication Ability: Impaired Kiln Charger Required: No Beliefs That Will Affect Care: None Current Living Situation: Alone Feels Safe at Home: Yes Assistive Devices: Cane and Walker Review of Systems Review of Systems: All systems reviewed & are unremarkable except as noted in HPI & below Physical Exam Constitutional: She remains hypotensive but alert Respiratory: normal respiratory effort; no respiratory distress Cardiovascular: Rate/Rhythm: regular rate and regular rhythm Vessels: femoral pulses present Extremities: + abnormal capillary refill (There is capillary refill present of the left foot. R foot with none) There is a good Doppler pulse in the dorsalis pedis on the left lower extremity. Right lower extremity I could not appreciate any Dopplers in the dorsalis pedis, posterior tibial, or popliteal artery. Gastrointestinal (Abdomen): Inspection/Auscultation: abdomen normal to inspection; abdomen not distended Percussion/Palpation: abdomen soft Skin: Both lower extremities are erythematous. There are multiple wounds on both sides. Right lower extremity foot appears to be ischemic. Neurologic: CN's II-XI intact bilaterally; + does not move all extremities (She has no movement of the right foot.) Psychiatric: Orientation: alert Results & Data Vital Signs (Past 12 Hours) Vital Signs Temp Pulse Resp BP Pulse Ox O2 Del Method 05/27/24 08:42 89 27 H 87 L 05/27/24 08:40 84/59 L 05/27/24 08:40 84/59 L 05/27/24 08:39 98 H 16 100 05/27/24 08:37 87/52 L 05/27/24 08:32 81/53 L 05/27/24 08:30 80/52 L 05/27/24 08:12 105 H 18 98 05/27/24 08:07 81/60 L 05/27/24 08:07 81/60 L 05/27/24 08:07 81/60 L 05/27/24 08:06 94 H 20 100 05/27/24 08:00 78/53 L 05/27/24 07:42 104 H 25 H 99 05/27/24 07:30 89 16 99 05/27/24 07:30 97/60 L 05/27/24 07:30 97/60 L 05/27/24 07:30 97/60 L 05/27/24 07:12 122 H 19 84 L 05/27/24 07:00 107 H 18 99 05/27/24 07:00 97/63 L 05/27/24 06:48 14 84 L 05/27/24 06:38 98/57 L 05/27/24 06:36 103 H 22 100 05/27/24 06:00 26 H 05/27/24 05:30 97 H 16 92 05/27/24 05:30 105/79 05/27/24 05:30 105/79 05/27/24 05:18 98 H 16 97 05/27/24 05:01 111/61 05/27/24 04:54 94 H 18 98 05/27/24 04:30 102/69 05/27/24 04:27 94 H 22 94 05/27/24 04:15 88 24 98 05/27/24 04:00 105/71 05/27/24 03:30 81/62 L 05/27/24 03:00 86 16 97 05/27/24 03:00 82/62 L 05/27/24 02:31 99/71 L 05/27/24 02:05 100/64 05/27/24 02:00 105 H 23 98 05/27/24 01:36 92 H 20 92 05/27/24 01:30 104/76 05/27/24 01:27 90 19 99 05/27/24 01:06 102 H 21 84 L 05/27/24 01:00 36.4 C L 05/27/24 00:31 97/70 L 05/27/24 00:31 97/70 L 05/27/24 00:31 97/70 L 05/27/24 00:27 87 16 90 05/27/24 00:18 32 H 87 L 05/27/24 00:00 114/72 05/27/24 00:00 86 05/26/24 23:57 90 25 H 97 05/26/24 23:15 Room Air 05/26/24 23:00 90 25 H 90 05/26/24 23:00 105/69 05/26/24 23:00 105/69
[2024-05-27] MEDS: POTASSIUM CHLORIDE 10 MEQ TABCR PO SCH (10:49)
--- NOTE | 2024-05-27 11:16 | Billing Data ---
Date of Service May 27, 2024 Coding Level of Care Code 84648 CRITICAL CARE
[2024-05-27] MEDS ORDERED: oxyCODONE HCL IR 5 MG TAB (IMMEDIATE RELEASE) PO PRN (11:44)
[2024-05-27] MEDS ORDERED: LORazepam 1 MG TAB SL PRN (11:45)
--- NOTE | 2024-05-27 11:57 | Communication Note ---
Date of Service: May 27, 2024 Brief Pall Med Note Consult received/appreciated/chart reviewed Full consult note will follow. I met with pt at bedside, no family present; face to face for 30min ACP She si AAOx3, she is decisionally intact She has spoken with surgery and primary teams She does not want surgery She insists on going home She states her 2 children are here for next week or so and she ahs help, they may extend their stay because they have remote work options She asks what she would need to do for returning home We discussed her goals She really does not want amputation or post amputation life changes included impaired mobility, likely SNF/LTC etc. She also burt snot want SNF rehab She only wants to go home though medical teams are concerned about her safety she states with her kids here, she will be safe and she wants to be in her own home, with her pets and family. She then stated "But I will come back if I want, that's ok right?" Advised pt of course this would always be ok however there is chance she will be beyond the window of opportunity for surgical intervention. I shared my worries about her soft BP, sepsis, need for surgery and overall medica complexity. I specifically advised I would worry she may not have much time left given how sick she is/she is on a pressor/she has sepsis/poor vascular status and the situation we are in at this junction. Lucy states she would rather spend time at home and with family even if it is limited. She accepts the risks of accelerated mortality and states she wants to live on her own terms and be with the people she prefers, not in the hospital and not being restricted. She reiterates her family supports her decision and she feels they will be able to help provide care at home with hospice. Updated primary and CCM teams, care mgt and nursing Referral to [facility] requested pt asking for pa CORNELIUS Thank you for allowing us to participate in the ongoing care of this patient. Please page with any additional concerns. Anel Cage DNP Director, Palliative Medicine
[2024-05-27 12:22] LABS: CMV IgG Antibody <0.60 U/mL; CMV IgM Antibody <30.00 AU/mL
[2024-05-27 13:48] VITALS: O2SAT 99
--- NOTE | 2024-05-27 15:27 | Discharge Summary ---
Date of Service May 27, 2024 Admission HPI Per Admitting Provider Lucy Monaco is a 74yo female with history of HTN, PVD s/p right CEA and stenting x 2 to LLE presenting with diffuse rash and worsening pain in her bilateral LE. Patient was seen by her PCP and had blood drawn today due to progressive symptoms - she was contacted by PCP and told to come to the ER due to low sodium, high potassium and poor kidney function. Patient reports that she has had problems with her legs for approximately 1.5 years. She has intermittent bouts of cellulitis and unhealing wounds. She has been on several courses of antibiotics in the past, although none recently. She does see wound care and has home health that comes in to change her LE bandages. Over the last several weeks she has had progression of pain in her bilateral LE as well as oozing and bleeding. She reports constant burning discomfort in her feet, legs and hands and more recently a sharp, shooting pain in her legs bilaterally L > R. She is complaining of diffuse, worsening body pain and has been taking a lot of Advil for this over the last several days. Patient additionally has a diffuse, erythematous, pruritic rash involving her trunk, back, extremities and face. She has been seen by her PCP for this - thought initially to be scabies. She was treated with Permethrin which improved her itching somewhat. She does not have evidence of bed bugs. She denies new medications recently. Her PCP has more recently been concerned about systemic infection leading to the rash - she has not yet had a biopsy or scraping collected. Patient also complaining of severe burning in her mouth. Reports that she is able to eat ice cream but has been having a difficult time eating other things for the last several days. Also repots decreased UOP - reports minimal urine output over the last 1-2 weeks. She did have some mild dysuria as well. Patient reports nausea with one episode of vomiting, non-bloody/non-bilious yesterday. Otherwise, denies fever, chills, chest pain, SOB, palpitations, abdominal pain, diarrhea, worsening joint pain or swelling, ulcers. No recent vaccinations, travel or sick contacts. She did have Covid-19 in January but reports she was not that ill. In the ER patient found to be in atrial fibrillation with RVR, rate of 118bpm. No prior history of such. ER Course: Ceftriaxone x 2gm IV Magnesium x 1gm IV Metoprolol 2.5mg IV NSS x 1250mL Dilaudid 0.25mg IV Baseline functional status - patient lives at home alone. She does have family nearby and friends that visit. She spends most of her time sitting at a computer desk and sleeps sitting at the desk as well. She has had worsening ambulatory dysfunction over the last several weeks due to her leg pain and diffuse body pain. She reports some skin breakdown of her sacral region as well. Patient drinks daily - sandra, reports 3-6 drinks per day, more on occasion due to pain. No history of EtOH withdrawal. Last drink was prior to arrival. She has not been taking her home medications consistently for several weeks. Reports she stopped her statin on her own appx 6 months ago and has not been taking her blood pressure medications due to her pressure being low at home. She has not taken the HCTZ for "a while". Follows regularly with PCP in [place]. Admission Exam Per Admitting Provider General: ill appearing elderly female resting in bed, in moderate distress secondary to leg discomfort Skin: diffuse rashes present. * On bilateral LE appears to have some venous stasis changes with areas of weeping, erythematous, warm and tender to touch. Xeroform dressings in place. Some maceration and breakdown of skin of posterior calf R > L, dusky appearing toes bilaterally, dusky appearing patches present on plantar surfaces of feet bilaterally with some skin peeling - feet are cool to touch. Adequate capillary refill and palpable DP pulses in bilateral LE. * Red, moist, well demarcated rash present beneath breasts bilaterally * Erythematous, scaling rash present on patient's trunk, arms and back with small punctate scattered areas of eschar, somewhat tender to touch * No obvious excoriations, no burrows in the interdigital regions or nails, no crusting to suspect scabies HEENT: NC/AT, PERRL, EOMI, anicteric sclera, conjunctiva without injection, external ear normal to inspection and nontender, nares patent, dry mucus membranes, dentition intact, no oropharyngeal lesions, neck supple, trachea midline, no LAD, no thyromegaly, no JVD Heart: +S1/S2, irregularly irregular, no m/r/g Lungs: equal air entry bilaterally, no rales/rhonchi/wheezes Abd: +BS, soft, NT/ND, no masses/organomegaly/ascites Ext: feet cool to touch, dusky discoloration of toes and plantar surface, adequate capillary refill and palpable DP pulses, trace bilateral LE edema Neuro: nonfocal, patient AA&O x 4, speech intact, no facial droop, moving all extremities on command with equal strength 5/5 Redness of sacral region Principal Diagnosis Sepsis Discharge Exam GENERAL: AAOx3, afebrile, uncomfortable, NAD HEAD: scattered violaceous scabbed over lesions that are subcentimeter in size on her face slighlty improved compared to previous examinations. PULMONARY: normal respiratory effort GI: soft, nontender : Azev[place] in place Discharge Data Allergies Allergy/AdvReac Type Severity Reaction Status Date / Time No Known Drug Allergies Allergy Unknown Verified 05/24/24 19:49 Consultations 05/24/24 19:20 ED Decision to Admit Stat 05/26/24 15:28 Consult General Surgery Routine 05/26/24 15:47 Consult Auto Brake Mechanic Routine 05/26/24 16:43 Consult Orthopedic Surgery Routine 05/27/24 09:53 Consult Vascular Surgery Routine 05/27/24 10:31 Consult Palliative Care Routine Ordered Studies 05/24/24 20:09 US Kidney Bladder [US renal/blad retro comp] Routine 05/24/24 20:52 US arterial duplex LE BI Stat 05/26/24 15:59 US point of care ultrasound Routine Hospital Course (1) Severe sepsis: (2) Intertrigo: (3) Hepatic steatosis: (4) Alcohol abuse: (5) Peripheral vascular disease: Plan Patient is a 74-year-old female with past medical history of hypertension, peripheral vascular disease status post right CEA and stents x 2 in the left lower extremity who was sent to the emergency department by her wound care doctor after abnormal findings in lab work. On arrival to emergency department, patient was found to be in A-fib with RVR, and also was meeting SIRS criteria due to tachycardia, hypotension, and leukocytosis. # Sepsis -Patient with history of chronic wounds in bilateral lower extremities due to history of significant PVD, which are believed to be the source of infection -Chest x-ray negative -WBC wnl; lactate wnl -Blood cultures negative for 48 hrs -MRSA swab positive -Patient was on Zosyn for antibiotic coverage -Consulted General Surgery and Vascular Surgery -Discussed with patient amputation for source control. Discussed how the procedure would help with her current condition as well as what she could experience after the procedure if it were to occur. Discussed the possibility of current disease worsening, and the possibility of should her condition continue to progress untreated. After said discussions as well as those involving goals of care for which Palliative care was also involved, patient preferred to go home with hospice. - Discharged today with family for home hospice. # New onset A-fib - Metoprolol tartrate 2.5 mg in the ED; none after due to hypotension - Ordered TTE (05/25/24): normal LV systolic function, mildly dilated left and right atria, no valvular disease, EF of 60-65% - TSH ~5 and T4 of ~1 - Rate controlled at the time of discharge # NATO -- Resolved - Suspected pre-renal secondary to hypotension/hypovolemia at time of admission - Current cr of 0.68 # Hyponatremia - Was only eating yogurt, ice cream, and drinking sandra prior to admission - Given patient appearing dry on exam at the time of admission as well as during evaluation today, consider her hyponatremia came as a consequence of poor PO intake of both fluids and foods - Na levels stable in 120s # Hyperkalemia -- Resolved - K now of 3.8 # PVD - Patient w/ hx of LLE stents x2 due to PVD - Arterial Doppler (05/24/24): Moderate amount of atherosclerotic plaques are visualized throughout both lower extremity arteries Demonstrates chronic occlusion with collaterals of the distal right superficial femoral artery Right and left calf/foot arteries: Dampened velocities and abnormal monophasic arterial waveforms, compatible with high-grade peripheral arterial disease Soft tissue edema - Was on ASA/Plavix # Alcohol abuse disorder - Drinks 5-6 shots of sandra - States she uses alcohol when she has significant neuropathic pain and occasionally in social situations. # Transaminitis - Resolved - LFTs wnl save for mildly elevated T.bili of 1.7 (decreasing trend) # Hepatic steatosis - Noted on Renal US - Likely from EtOH use # Intertrigo - Area under bilateral breasts humid and rash consistent with possible candidal infection - Treated w/ Nystatin Will discharge to home hospice today. Family aware and in agreement. Spoke with her son and his on the phone to ensure understanding of the situation and the move to hospice, and also ensured they would be staying with the patient in her home. Total Time Total Time Spent Total Time Spent (In Minutes): As per attending attestation. Discharge Plan Discharge Items Patient Disposition: Hospice - Home Reason For Visit: RASH, LEG PAIN, ELECTROLYTE ABNORMALITY, NATO Discharge Diagnosis: Sepsis Activity: Per Instructions section Non-emergency contact: Primary Care Provider Call non-emergency contact if: you have any medication questions Follow-up/Referrals: Alex Horne M.D. [Primary Care Provider] - Diet: Carb Consistent or DM2 and Heart Healthy Addtl Attending Provider Instructions: You are admitted to the hospital due to an abnormal heart rhythm which was noted to be related to a generalized infection we believe was coming from infection in your legs. We are treating with antibiotics, however your blood pressure kept decreasing which we believe was also related to your current infection. Since the source of your infection was your legs, we discussed with our general surgeons and our vascular surgeons, and we proposed amputating your legs to tackle the source of your infection, however, after discussing this option as well as what could occur after the amputation and the possible risk of not proceeding with this procedure. Ultimately, after discussing your goals with regards to your care, the decision was made to proceed with home hospice. Therefore, we will be discharging you on home hospice. Pending Studies at Discharge: No Stand-Alone Forms: My [facility] Medications and DC Order Prescriptions: Continued ibuprofen [Advil Liqui-Gel] 200 mg Capsule 400 mg PO Q6H PRN (Reason: Pain) Rx Instructions: if no relief after an hour the patient takes an additional capsule aspirin 500 mg Tablet 1,000 mg PO Q6H PRN (Reason: Pain) ezetimibe 10 mg tablet 10 mg PO DAILY potassium chloride [Klor-Con M10] 10 mEq tablet,ER particles/crystals 10 meq PO DAILY clopidogrel 75 mg tablet 75 mg PO DAILY acetaminophen [Tylenol Extra Strength] 500 mg Tablet 1,000 mg PO Q8H PRN (Reason: Pain) loratadine [Claritin] 10 mg Tablet 10 mg PO QAM PRN (Reason: allergies) magnesium oxide 400 mg magnesium Tablet 400 mg PO DAILY Discontinued atenolol 25 mg tablet 25 mg PO BID Rx Instructions: pt holds if BP is too low hydrochlorothiazide 12.5 mg tablet 0 mg PO DAILY Rx Instructions: pt has not recently taken Discharge Orders: Discharge Order (Routine); Ordered 05/27/24 Ordered By: Parvin Garrison Admission Data Admit Date/Time: 05/24/24 20:07 Attending Provider: Harris Galvan Admit Provider: Gala Pederson Primary Care Provider: Alex Horne Other Providers: Gala Pederson; Robinson Mauro.; Adriano Maravilla; Adriano Nguyen; Ricky Larose; Nasrin Cage; [facility] Other Interventions: Discharge Summary Assessment (RN) Last Done: 05/27/24 13:51 Supervising Physician Co-Signing Physician Notes I also saw the patient and confirmed saxena portions of the clinical history physical examination. I agree with the impression and plan as noted in the resident discharge summary. I also personally discussed the case with the ICU and palliative care consultants. I had a fairly lengthy conversation with the patient this morning and discussed the options; discussed the decision process that brought us to the recommendation of amputation (life over limb) - and likely course should she choose to go home with hospice. She understands the difficult road she would have after surgery, and the likelihood of should her current infection go untreated. She would like to pursue comfort measures, which would be consistent with home hospice. Her family is supportive of her decision as well. Plan is home with hospice today, if all logistics can be arranged. Resident Activity Tracking Resident Involvement: Resident Care Provided Care Provided: Adult [facility] Medicine
[2024-05-27 16:00] VITALS: BP 108/69; RESP 22
[2024-05-27 16:25] VITALS: PULSE 100
--- NOTE | 2024-05-27 19:38 | Palliative Care Consultation ---
Date of Consultation May 27, 2024 Assessment & Plan (1) Dyspnea and respiratory abnormalities: (2) Weakness generalized: (3) Severe sepsis: (4) Advanced care planning/counseling discussion: I met with pt at bedside, no family present; face to face for 30min ACP She is AAOx3, she is decisionally intact She has spoken with surgery and primary teams She does not want surgery She insists on going home She states her 2 children are here for next week or so and she ahs help, they may extend their stay because they have remote work options She asks what she would need to do for returning home We discussed her goals She really does not want amputation or post amputation life changes included impaired mobility, likely SNF/LTC etc. She also burt snot want SNF rehab She only wants to go home though medical teams are concerned about her safety she states with her kids here, she will be safe and she wants to be in her own home, with her pets and family. She then stated "But I will come back if I want, that's ok right?" Advised pt of course this would always be ok however there is chance she will be beyond the window of opportunity for surgical intervention. I shared my worries about her soft BP, sepsis, need for surgery and overall medica complexity. I specifically advised I would worry she may not have much time left given how sick she is/she is on a pressor/she has sepsis/poor vascular status and the situation we are in at this junction. Lucy states she would rather spend time at home and with family even if it is limited. She accepts the risks of accelerated mortality and states she wants to live on her own terms and be with the people she prefers, not in the hospital and not being restricted. She reiterates her family supports her decision and she feels they will be able to help provide care at home with hospice. Updated primary and CCM teams, care mgt and nursing Referral to [facility] requested pt asking for dc CORNELIUS (5) Palliative care by specialist: Introduced Palliative Medicine and explained our role in patient's care. Patient and/or family were receptive to palliative services for goals of care discussions. Reviewed we are different from hospice, a home health nurse visiting service. (6) Alcohol abuse: ongoing/chronic/longstanding (7) Dehydration: Plan ACP as above Thank you for allowing us to participate in the ongoing care of this patient. Please page with any additional concerns. Anel Cage [facility] Director, Palliative Medicine History of Present Illness Reason for Consultation: sepsis, vascular compromise, hemodynamic instability Attending Physician: Harris Galvan DO History of Present Illness Lucy is a 74yo female with very advanced PVD found to have A fib RVR, hypotension, BLE cellulitis and RLE ischemic disease, BLE wounds She was evaluated by vascular surgery for Peripheral vascular disease: revascularization is not possible, no motion of the foot, they have recc right AKA. Admitted 05/24/24: PMH active alcohol abuse, HTN, and peripheral vascular disease, Afib rvr Came to [facility] ER 05/24/24 with weakness, BLE wounds, hypotensive. Admitted for sepsis, + hypotension on norepi uLcy states she can maneuver around her home with a walker, however family has reported limited mobility and living conditions are "squalor." The duplex demonstrates patent arteries. The right side shows dampened waveforms at the distal superficial femoral artery downward, c/w occlusion of the distal superficial femoral artery popliteal and infrapopliteal arteries. Allergies Allergy/AdvReac Type Severity Reaction Status Date / Time No Known Drug Allergies Allergy Unknown Verified 05/24/24 19:49 Home Medications Medication Instructions Recorded Confirmed Type acetaminophen 500 mg tablet 1,000 mg PO Q8H PRN Pain 05/24/24 05/24/24 History (Tylenol Extra Strength) aspirin 500 mg tablet 1,000 mg PO Q6H PRN Pain 05/24/24 05/24/24 History clopidogrel 75 mg tablet 75 mg PO DAILY 05/24/24 05/24/24 History ezetimibe 10 mg tablet 10 mg PO DAILY 05/24/24 05/24/24 History ibuprofen 200 mg capsule (Advil 400 mg PO Q6H PRN Pain 05/24/24 05/24/24 History Liqui-Gel) loratadine 10 mg tablet (Claritin) 10 mg PO QAM PRN allergies 05/24/24 05/24/24 History magnesium oxide 400 mg PO DAILY 05/24/24 05/24/24 History potassium chloride 10 mEq 10 meq PO DAILY 05/24/24 05/24/24 History tablet,extended release(part/cryst) (Klsivakumar-Con M) Patient History Medical History Carotid artery disease s/p right CEA Peripheral vascular disease s/p stenting to LLE x 2 Hypertension Surgical History H/O carotid endarterectomy S/P TKR (total knee replacement) Family History Other Hypertension Parkinson disease Social History Smoking Status: Never smoker Second Hand Exposure: No; Do You Dip or Chew Tobacco: No; Hx Alcohol Use: Yes Alcohol type: hard liquor Hx Substance Use: No Preferred Language: Macanese Communication Ability: Impaired Learning And Development Assistant Required: No Beliefs That Will Affect Care: None Current Living Situation: Alone Feels Safe at Home: Yes Assistive Devices: Cane and Walker Review of Systems Review of Systems: All systems reviewed & are unremarkable except as noted in Subjective Physical Exam Constitutional: + acute distress, + ill appearing, + phy sical limitations, + frail appearing, cooperative and + malnourished Eyes: PERRL ENMT: Mouth: + dentition abnormality, + poor dentition and + chipped teeth Neck: trachea midline, no thyromegaly Respiratory: able to speak in complete sentences and symmetric chest movement Auscultation: + diminished lung sounds and + crackles Cardiovascular: Rate/Rhythm: + tachycardic Gastrointestinal (Abdomen): Inspection/Auscultation: normal bowel sounds Percussion/Palpation: abdomen soft; abdomen nontender and no guarding Musculoskeletal: BLE edema +2 BLE erythema +BLE with venous ulceration/wounds RLE is ischemic, I could not appreciate a pulse Skin: + turgor decreased, + erythema, + excori ations, + pallor and + hair thinning Neurologic: AAOx3 Psychiatric: anxious at times Genitourinary: +Azevedo Results & Data Vital Signs (Past 12 Hours) Vital Signs Temp Pulse Pulse Resp BP BP Pulse Ox 05/27/24 16:24 100 H 05/27/24 15:30 108/69 05/27/24 15:30 108/69 05/27/24 15:30 116 H 22 05/27/24 15:15 96/64 L 05/27/24 15:15 96/64 L 05/27/24 15:09 15 05/27/24 15:06 117 H 20 05/27/24 14:30 110 H 18 05/27/24 14:01 91/53 L 05/27/24 14:01 91/53 L 05/27/24 14:01 91/53 L 05/27/24 14:00 110 H 22 05/27/24 13:51 36.4 C L 113 H 19 106/70 99 05/27/24 13:46 106/70 05/27/24 13:40 96 H 05/27/24 13:39 146 H 19 05/27/24 13:30 105/66 05/27/24 13:30 105/66 05/27/24 13:30 102 H 17 05/27/24 13:24 105 H 19 05/27/24 13:15 97 H 20 05/27/24 13:15 102/68 05/27/24 13:00 110/61 05/27/24 13:00 110/61 05/27/24 13:00 108 H 19 05/27/24 12:51 99 H 26 H 05/27/24 12:45 108/66 05/27/24 12:39 196 H 24 05/27/24 12:30 91 H 19 05/27/24 12:30 104/65 05/27/24 12:24 19 05/27/24 12:18 105 H 19 05/27/24 12:16 105/60 05/27/24 12:16 105/60 05/27/24 12:13 96/67 L 05/27/24 11:54 113 H 22 99 05/27/24 11:48 107 H 27 H 99 05/27/24 11:45 108/71 05/27/24 11:45 108/71 05/27/24 11:45 108/71 05/27/24 11:39 110 H 19 100 05/27/24 11:33 117 H 26 H 100 05/27/24 11:31 105/58 L 05/27/24 11:21 123 H 17 99 05/27/24 11:15 105/72 05/27/24 11:01 104/58 L 05/27/24 11:01 104/58 L 05/27/24 10:57 111 H 21 100 05/27/24 10:51 111 H 19 99 05/27/24 10:30 104/71 05/27/24 10:24 109 H 28 H 90 05/27/24 10:21 120 H 25 H 97 05/27/24 10:15 106/73 05/27/24 10:12 95 H 18 98 05/27/24 10:00 98 H 25 H 99 05/27/24 09:45 101/71 05/27/24 09:45 101/71 05/27/24 09:45 101/71 05/27/24 09:45 94 H 24 99 05/27/24 09:36 101 H 20 95 05/27/24 09:21 97 H 21 87 L 05/27/24 09:20 97/71 L 05/27/24 09:20 97/71 L 05/27/24 09:10 105/73 05/27/24 09:00 05/27/24 08:42 89 27 H 87 L 05/27/24 08:40 84/59 L 05/27/24 08:40 84/59 L 05/27/24 08:39 98 H 16 100 05/27/24 08:37 87/52 L 05/27/24 08:32 81/53 L 05/27/24 08:30 80/52 L 05/27/24 08:12 105 H 18 98 05/27/24 08:07 81/60 L 05/27/24 08:07 81/60 L 05/27/24 08:07 81/60 L 05/27/24 08:06 94 H 20 100 05/27/24 08:00 103 H 05/27/24 08:00 78/53 L 05/27/24 07:42 104 H 25 H 99 05/27/24 07:30 89 16 99 05/27/24 07:30 97/60 L 05/27/24 07:30 97/60 L 05/27/24 07:30 97/60 L O2 Del Method 05/27/24 16:24 05/27/24 15:30 05/27/24 15:30 05/27/24 15:30 05/27/24 15:15 05/27/24 15:15 05/27/24 15:09 05/27/24 15:06 05/27/24 14:30 05/27/24 14:01 05/27/24 14:01 05/27/24 14:01 05/27/24 14:00 05/27/24 13:51 05/27/24 13:46 05/27/24 13:40 05/27/24 13:39 05/27/24 13:30 05/27/24 13:30 05/27/24 13:30 05/27/24 13:24 05/27/24 13:15 05/27/24 13:15 05/27/24 13:00 05/27/24 13:00 05/27/24 13:00 05/27/24 12:51 05/27/24 12:45 05/27/24 12:39 05/27/24 12:30 05/27/24 12:30 05/27/24 12:24 05/27/24 12:18 05/27/24 12:16 05/27/24 12:16 05/27/24 12:13 05/27/24 11:54 05/27/24 11:48 05/27/24 11:45 05/27/24 11:45 05/27/24 11:45 05/27/24 11:39 05/27/24 11:33 05/27/24 11:31 05/27/24 11:21 05/27/24 11:15 05/27/24 11:01 05/27/24 11:01 05/27/24 10:57 05/27/24 10:51 05/27/24 10:30 05/27/24 10:24 05/27/24 10:21 05/27/24 10:15 05/27/24 10:12 05/27/24 10:00 05/27/24 09:45 05/27/24 09:45 05/27/24 09:45 05/27/24 09:45 05/27/24 09:36 05/27/24 09:21 05/27/24 09:20 05/27/24 09:20 05/27/24 09:10 05/27/24 09:00 Room Air 05/27/24 08:42 05/27/24 08:40 05/27/24 08:40 05/27/24 08:39 05/27/24 08:37 05/27/24 08:32 05/27/24 08:30 05/27/24 08:12 05/27/24 08:07 05/27/24 08:07 05/27/24 08:07 05/27/24 08:06 05/27/24 08:00 05/27/24 08:00 05/27/24 07:42 05/27/24 07:30 05/27/24 07:30 05/27/24 07:30 05/27/24 07:30 Laboratory Results 05/27/24 05/27/24 05/26/24 Range/Units 09:09 04:43 20:49 WBC 9.69 (4.8-10.8) K/ul RBC 3.04 L (4.20-5.40) M/uL Hgb 10.5 L (12.0-16.0) g/dl Hct 29.4 L (37.0-47.0) % MCV 96.7 (80.0-100.0) fL MCH 34.5 H (25.0-34.0) pg MCHC 35.7 (32.0-36.0) g/dL RDW Std Deviation 52.6 H (36.4-46.3) fL RDW Coeff of Kati 14.7 H (11.5-14.5) % Plt Count 127 L (130-400) K/uL MPV 8.4 L (9.4-12.4) fL Immature Gran % (Auto) 2.2 % Neut % (Auto) 70.3 % Lymph % (Auto) 10.4 % [place] % (Auto) 12.0 % Eos % (Auto) 4.5 % Baso % (Auto) 0.6 % Neut # (Auto) 6.81 H (1.40-6.50) K/uL Lymph # (Auto) 1.01 L (1.20-3.40) K/uL [place] # (Auto) 1.16 H (0.11-0.59) K/uL Eos # (Auto) 0.44 (0.00-0.50) K/uL Baso # (Auto) 0.06 (0.00-0.20) K/uL Immature Gran # (Auto) 0.21 H (0.01-0.20) K/uL ESR (0-30) mm/hr PT (9.0-12.0) Seconds INR (0.9-1.1) APTT (21-31) Seconds PTT Ratio Fibrinogen (184-400) mg/dl Heparin Anti-Xa, Unfract 1.03 H* > 1.50 H* (0.3-0.7) IU/ml VBG pH (7.36-7.41) VBG pCO2 (38-50) mmHg VBG pO2 mmHg VBG HCO3 mmol/L VBG O2 Saturation % VBG Base Excess mEq/L Sodium 127 L (136-145) mmol/L Potassium 3.8 (3.5-5.1) mmol/L Chloride 99 (98-107) mmol/L Carbon Dioxide 20 L (21-32) mmol/L Anion Gap 8 (3-11) BUN 19 (6-23) mg/dl Creatinine 0.68 (0.6-1.2) mg/dl Est Cr Clr Drug Dosing 67.3 ml/min eGFR 92.48 Est GFR ( Amer) ml/min Est GFR (Non-Af Amer) ml/min BUN/Creatinine Ratio 27.9 H (10-20) Glucose 105 H (70-99(Fasting)) mg/dl POC Glucose 121 H (70-99) mg/dl Estimat Average Glucose mg/dl Hemoglobin A1c (4.5-5.6) % Osmolality (280-300) mOsm/kg Lactate 1.2 (0.4-2.0) mmol/L Calcium 7.4 L (8.6-10.3) mg/dl Phosphorus 2.3 L (2.5-4.9) mg/dl Magnesium 1.8 (1.7-2.4) mg/dl Total Bilirubin 1.7 H (0.2-1.0) mg/dl Direct Bilirubin (0-0.2) mg/dl AST 29 (13-39) U/L ALT 30 (7-52) U/L Alkaline Phosphatase 84 (34-104) U/L Lactate Dehydrogenase (86-244) U/L Total Creatine Kinase (26-192) U/L Troponin I High Sens (0-14) pg/ml C-Reactive Protein (0-0.5) mg/dl Total Protein 5.0 L (6.0-8.3) gm/dl Albumin 2.3 L (3.4-5.0) gm/dl Globulin 2.7 (2.5-4.0) gm/dl Albumin/Globulin Ratio 0.9 (0.9-2) Vitamin B12 (180-914) pg/ml Folate (>5.38) ng/ml Procalcitonin (0-0.5) ng/ml TSH (0.300-4.500) uIu/ml Free T4 (0.61-1.60) ng/dl Random Cortisol mcg/dl Urine Color Urine Appearance (Clear) Urine pH (4.5-7.5) Ur Specific Walker (1.000-1.030) Urine Protein (Negative) Urine Glucose (UA) (Negative) Urine Ketones (Negative) Urine Blood (Negative) Urine Nitrite (Negative) Urine Bilirubin (Negative) Urine Urobilinogen (Negative) Ur Leukocyte Esterase (Negative) Urine WBC (Auto) (0-5) /hpf Urine RBC (Auto) (0-2) /hpf U Hyaline Cast (Auto) (0-2) /lpf U Epithel Cells (Auto) (0-2) /hpf Urine Bacteria (Auto) (None Seen) Calcium Oxalate Crystal (None Prsent) Urine Osmolality (500-800) mOsm/kg Ur Random Creatinine mg/dl Ur Random Sodium mmol/L Nasal Screen MRSA (PCR) (Negative) Anaplasma Smear A. phagocytophilum DNA Babesia Smear Babesia microti DNA PCR Lyme Disease Screen (Negative) CMV IgM Ab AU/mL CMV IgG Ab/TORCH U/mL Ehrlichia DNA (PCR) EBV Capsid Ag IgG Ab U/mL EBV Capsid Ag IgM Ab U/mL EBV EA Restrict+Diffuse U/mL EBV Nuclear Antigen Ab U/mL EBV Antibody Interp Hepatitis A IgM Ab (NON-REACTIVE) Hep Bs Antigen (Negative) Hep B Core IgM Ab (NON-REACTIVE) Hepatitis C Antibody (Negative) Monoscreen (Negative) Q Fever Phase I IgG Ab Q Fever Phase I IgM Ab Q Fever Phase II IgG Ab Q Fever Phase II IgM Ab Rickettsia IgG Ab Rickettsia IgM Ab Typhus Fever IgG Ab Typhus Fever IgM Ab Blood Type Antibody Screen 05/26/24 05/26/24 05/26/24 Range/Units 17:22 17:21 15:29 WBC (4.8-10.8) K/ul RBC (4.20-5.40) M/uL Hgb (12.0-16.0) g/dl Hct (37.0-47.0) % MCV (80.0-100.0) fL MCH (25.0-34.0) pg MCHC (32.0-36.0) g/dL RDW Std Deviation (36.4-46.3) fL RDW Coeff of Kati (11.5-14.5) % Plt Count (130-400) K/uL MPV (9.4-12.4) fL Immature Gran % (Auto) % Neut % (Auto) % Lymph % (Auto) % [place] % (Auto) % Eos % (Auto) % Baso % (Auto) % Neut # (Auto) (1.40-6.50) K/uL Lymph # (Auto) (1.20-3.40) K/uL [place] # (Auto) (0.11-0.59) K/uL Eos # (Auto) (0.00-0.50) K/uL Baso # (Auto) (0.00-0.20) K/uL Immature Gran # (Auto) (0.01-0.20) K/uL ESR (0-30) mm/hr PT 12.3 H (9.0-12.0) Seconds INR 1.1 (0.9-1.1) APTT 31 (21-31) Seconds PTT Ratio 1.2 Fibrinogen 403 H (184-400) mg/dl Heparin Anti-Xa, Unfract (0.3-0.7) IU/ml VBG pH (7.36-7.41) VBG pCO2 (38-50) mmHg VBG pO2 mmHg VBG HCO3 mmol/L VBG O2 Saturation % VBG Base Excess mEq/L Sodium 125 L (136-145) mmol/L Potassium 3.9 (3.5-5.1) mmol/L Chloride 97 L (98-107) mmol/L Carbon Dioxide 19 L (21-32) mmol/L Anion Gap 9 (3-11) BUN 25 H (6-23) mg/dl Creatinine 0.76 (0.6-1.2) mg/dl Est Cr Clr Drug Dosing 60.2 ml/min eGFR 83.20 Est GFR ( Amer) ml/min Est GFR (Non-Af Amer) ml/min BUN/Creatinine Ratio 32.9 H (10-20) Glucose 140 H (70-99(Fasting)) mg/dl POC Glucose 126 H (70-99) mg/dl Estimat Average Glucose mg/dl Hemoglobin A1c (4.5-5.6) % Osmolality (280-300) mOsm/kg Lactate 1.9 (0.4-2.0) mmol/L Calcium 7.0 L (8.6-10.3) mg/dl Phosphorus 1.4 L* (2.5-4.9) mg/dl Magnesium 2.0 (1.7-2.4) mg/dl Total Bilirubin (0.2-1.0) mg/dl Direct Bilirubin (0-0.2) mg/dl AST (13-39) U/L ALT (7-52) U/L Alkaline Phosphatase (34-104) U/L Lactate Dehydrogenase (86-244) U/L Total Creatine Kinase (26-192) U/L Troponin I High Sens (0-14) pg/ml C-Reactive Protein (0-0.5) mg/dl Total Protein (6.0-8.3) gm/dl Albumin (3.4-5.0) gm/dl Globulin (2.5-4.0) gm/dl Albumin/Globulin Ratio (0.9-2) Vitamin B12 (180-914) pg/ml Folate (>5.38) ng/ml Procalcitonin (0-0.5) ng/ml TSH (0.300-4.500) uIu/ml Free T4 (0.61-1.60) ng/dl Random Cortisol mcg/dl Urine Color Urine Appearance (Clear) Urine pH (4.5-7.5) Ur Specific Walker (1.000-1.030) Urine Protein (Negative) Urine Glucose (UA) (Negative) Urine Ketones (Negative) Urine Blood (Negative) Urine Nitrite (Negative) Urine Bilirubin (Negative) Urine Urobilinogen (Negative) Ur Leukocyte Esterase (Negative) Urine WBC (Auto) (0-5) /hpf Urine RBC (Auto) (0-2) /hpf U Hyaline Cast (Auto) (0-2) /lpf U Epithel Cells (Auto) (0-2) /hpf Urine Bacteria (Auto) (None Seen) Calcium Oxalate Crystal (None Prsent) Urine Osmolality (500-800) mOsm/kg Ur Random Creatinine mg/dl Ur Random Sodium mmol/L Nasal Screen MRSA (PCR) (Negative) Anaplasma Smear A. phagocytophilum DNA Babesia Smear Babesia microti DNA PCR Lyme Disease Screen (Negative) CMV IgM Ab AU/mL CMV IgG Ab/TORCH U/mL Ehrlichia DNA (PCR) EBV Capsid Ag IgG Ab U/mL EBV Capsid Ag IgM Ab U/mL EBV EA Restrict+Diffuse U/mL EBV Nuclear Antigen Ab U/mL EBV Antibody Interp Hepatitis A IgM Ab (NON-REACTIVE) Hep Bs Antigen (Negative) Hep B Core IgM Ab (NON-REACTIVE) Hepatitis C Antibody (Negative) Monoscreen (Negative) Q Fever Phase I IgG Ab Q Fever Phase I IgM Ab Q Fever Phase II IgG Ab Q Fever Phase II IgM Ab Rickettsia IgG Ab Rickettsia IgM Ab Typhus Fever IgG Ab Typhus Fever IgM Ab Blood Type O Positive Antibody Screen NEGATIVE 05/26/24 05/26/24 05/25/24 Range/Units 15:15 05:17 Unknown WBC 10.03 (4.8-10.8) K/ul RBC 3.04 L (4.20-5.40) M/uL Hgb 10.3 L (12.0-16.0) g/dl Hct 30.2 L (37.0-47.0) % MCV 99.3 (80.0-100.0) fL MCH 33.9 (25.0-34.0) pg MCHC 34.1 (32.0-36.0) g/dL RDW Std Deviation 53.6 H (36.4-46.3) fL RDW Coeff of Kati 14.7 H (11.5-14.5) % Plt Count 135 (130-400) K/uL MPV 8.4 L (9.4-12.4) fL Immature Gran % (Auto) 1.5 % Neut % (Auto) 78.0 % Lymph % (Auto) 6.5 % [place]ata[place] % (Auto) 11.4 % Eos % (Auto) 2.2 % Baso % (Auto) 0.4 % Neut # (Auto) 7.83 H (1.40-6.50) K/uL Lymph # (Auto) 0.65 L (1.20-3.40) K/uL [place] # (Auto) 1.14 H (0.11-0.59) K/uL Eos # (Auto) 0.22 (0.00-0.50) K/uL Baso # (Auto) 0.04 (0.00-0.20) K/uL Immature Gran # (Auto) 0.15 (0.01-0.20) K/uL ESR (0-30) mm/hr PT (9.0-12.0) Seconds INR (0.9-1.1) APTT (21-31) Seconds PTT Ratio Fibrinogen (184-400) mg/dl Heparin Anti-Xa, Unfract (0.3-0.7) IU/ml VBG pH 7.38 (7.36-7.41) VBG pCO2 36 L (38-50) mmHg VBG pO2 40 mmHg VBG HCO3 21 mmol/L VBG O2 Saturation 68.0 % VBG Base Excess -3.3 mEq/L Sodium 127 L (136-145) mmol/L Potassium 3.3 L D (3.5-5.1) mmol/L Chloride 97 L (98-107) mmol/L Carbon Dioxide 22 (21-32) mmol/L Anion Gap 8 (3-11) BUN 28 H (6-23) mg/dl Creatinine 0.85 D (0.6-1.2) mg/dl Est Cr Clr Drug Dosing 53.8 ml/min eGFR 72.75 Est GFR ( Amer) ml/min Est GFR (Non-Af Amer) ml/min BUN/Creatinine Ratio 32.9 H (10-20) Glucose 92 (70-99(Fasting)) mg/dl POC Glucose (70-99) mg/dl Estimat Average Glucose mg/dl Hemoglobin A1c (4.5-5.6) % Osmolality (280-300) mOsm/kg Lactate 2.3 H* (0.4-2.0) mmol/L Calcium 7.1 L (8.6-10.3) mg/dl Phosphorus (2.5-4.9) mg/dl Magnesium 1.6 L (1.7-2.4) mg/dl Total Bilirubin 1.9 H (0.2-1.0) mg/dl Direct Bilirubin (0-0.2) mg/dl AST 38 (13-39) U/L ALT 33 (7-52) U/L Alkaline Phosphatase 88 (34-104) U/L Lactate Dehydrogenase (86-244) U/L Total Creatine Kinase (26-192) U/L Troponin I High Sens (0-14) pg/ml C-Reactive Protein (0-0.5) mg/dl Total Protein 5.0 L (6.0-8.3) gm/dl Albumin 2.4 L (3.4-5.0) gm/dl Globulin 2.6 (2.5-4.0) gm/dl Albumin/Globulin Ratio 0.9 (0.9-2) Vitamin B12 (180-914) pg/ml Folate (>5.38) ng/ml Procalcitonin (0-0.5) ng/ml TSH (0.300-4.500) uIu/ml Free T4 (0.61-1.60) ng/dl Random Cortisol 13.07 mcg/dl Urine Color Dark Yellow Urine Appearance Clear (Clear) Urine pH 5.5 (4.5-7.5) Ur Specific Walker 1.018 (1.000-1.030) Urine Protein Trace H (Negative) Urine Glucose (UA) Negative (Negative) Urine Ketones Trace H (Negative) Urine Blood Negative (Negative) Urine Nitrite Negative (Negative) Urine Bilirubin 1+ H (Negative) Urine Urobilinogen Negative (Negative) Ur Leukocyte Esterase Negative (Negative) Urine WBC (Auto) 0-5 (0-5) /hpf Urine RBC (Auto) 3-5 H (0-2) /hpf U Hyaline Cast (Auto) 3-5 H (0-2) /lpf U Epithel Cells (Auto) 6-10 H (0-2) /hpf Urine Bacteria (Auto) None Seen (None Seen) Calcium Oxalate Crystal Present A (None Prsent) Urine Osmolality (500-800) mOsm/kg Ur Random Creatinine mg/dl Ur Random Sodium mmol/L Nasal Screen MRSA (PCR) Positive A (Negative) Anaplasma Smear A. phagocytophilum DNA Babesia Smear Babesia microti DNA PCR Lyme Disease Screen (Negative) CMV IgM Ab AU/mL CMV IgG Ab/TORCH U/mL Ehrlichia DNA (PCR) EBV Capsid Ag IgG Ab U/mL EBV Capsid Ag IgM Ab U/mL EBV EA Restrict+Diffuse U/mL EBV Nuclear Antigen Ab U/mL EBV Antibody Interp Hepatitis A IgM Ab (NON-REACTIVE) Hep Bs Antigen (Negative) Hep B Core IgM Ab (NON-REACTIVE) Hepatitis C Antibody (Negative) Monoscreen (Negative) Q Fever Phase I IgG Ab Q Fever Phase I IgM Ab Q Fever Phase II IgG Ab Q Fever Phase II IgM Ab Rickettsia IgG Ab Rickettsia IgM Ab Typhus Fever IgG Ab Typhus Fever IgM Ab Blood Type Antibody Screen 05/25/24 05/25/24 05/25/24 Range/Units 14:06 11:30 11:28 WBC (4.8-10.8) K/ul RBC (4.20-5.40) M/uL Hgb (12.0-16.0) g/dl Hct (37.0-47.0) % MCV (80.0-100.0) fL MCH (25.0-34.0) pg MCHC (32.0-36.0) g/dL RDW Std Deviation (36.4-46.3) fL RDW Coeff of Kati (11.5-14.5) % Plt Count (130-400) K/uL MPV (9.4-12.4) fL Immature Gran % (Auto) % Neut % (Auto) % Lymph % (Auto) % [place] % (Auto) % Eos % (Auto) % Baso % (Auto) % Neut # (Auto) (1.40-6.50) K/uL Lymph # (Auto) (1.20-3.40) K/uL [place] # (Auto) (0.11-0.59) K/uL Eos # (Auto) (0.00-0.50) K/uL Baso # (Auto) (0.00-0.20) K/uL Immature Gran # (Auto) (0.01-0.20) K/uL ESR (0-30) mm/hr PT (9.0-12.0) Seconds INR (0.9-1.1) APTT (21-31) Seconds PTT Ratio Fibrinogen (184-400) mg/dl Heparin Anti-Xa, Unfract (0.3-0.7) IU/ml VBG pH (7.36-7.41) VBG pCO2 (38-50) mmHg VBG pO2 mmHg VBG HCO3 mmol/L VBG O2 Saturation % VBG Base Excess mEq/L Sodium (136-145) mmol/L Potassium (3.5-5.1) mmol/L Chloride (98-107) mmol/L Carbon Dioxide (21-32) mmol/L Anion Gap (3-11) BUN (6-23) mg/dl Creatinine (0.6-1.2) mg/dl Est Cr Clr Drug Dosing ml/min eGFR Est GFR ( Amer) ml/min Est GFR (Non-Af Amer) ml/min BUN/Creatinine Ratio (10-20) Glucose (70-99(Fasting)) mg/dl POC Glucose (70-99) mg/dl Estimat Average Glucose mg/dl Hemoglobin A1c (4.5-5.6) % Osmolality (280-300) mOsm/kg Lactate 1.7 2.1 H* (0.4-2.0) mmol/L Calcium (8.6-10.3) mg/dl Phosphorus (2.5-4.9) mg/dl Magnesium (1.7-2.4) mg/dl Total Bilirubin (0.2-1.0) mg/dl Direct Bilirubin (0-0.2) mg/dl AST (13-39) U/L ALT (7-52) U/L Alkaline Phosphatase (34-104) U/L Lactate Dehydrogenase (86-244) U/L Total Creatine Kinase (26-192) U/L Troponin I High Sens (0-14) pg/ml C-Reactive Protein (0-0.5) mg/dl Total Protein (6.0-8.3) gm/dl Albumin (3.4-5.0) gm/dl Globulin (2.5-4.0) gm/dl Albumin/Globulin Ratio (0.9-2) Vitamin B12 (180-914) pg/ml Folate (>5.38) ng/ml Procalcitonin (0-0.5) ng/ml TSH (0.300-4.500) uIu/ml Free T4 (0.61-1.60) ng/dl Random Cortisol mcg/dl Urine Color Urine Appearance (Clear) Urine pH (4.5-7.5) Ur Specific Walker (1.000-1.030) Urine Protein (Negative) Urine Glucose (UA) (Negative) Urine Ketones (Negative) Urine Blood (Negative) Urine Nitrite (Negative) Urine Bilirubin (Negative) Urine Urobilinogen (Negative) Ur Leukocyte Esterase (Negative) Urine WBC (Auto) (0-5) /hpf Urine RBC (Auto) (0-2) /hpf U Hyaline Cast (Auto) (0-2) /lpf U Epithel Cells (Auto) (0-2) /hpf Urine Bacteria (Auto) (None Seen) Calcium Oxalate Crystal (None Prsent) Urine Osmolality (500-800) mOsm/kg Ur Random Creatinine mg/dl Ur Random Sodium mmol/L Nasal Screen MRSA (PCR) (Negative) Anaplasma Smear A. phagocytophilum DNA Babesia Smear Babesia microti DNA PCR Lyme Disease Screen (Negative) CMV IgM Ab <30.00 AU/mL CMV IgG Ab/TORCH <0.60 U/mL Ehrlichia DNA (PCR) EBV Capsid Ag IgG Ab 105.00 H U/mL EBV Capsid Ag IgM Ab <36.00 U/mL EBV EA Restrict+Diffuse 30.70 H U/mL EBV Nuclear Antigen Ab >600.00 H U/mL EBV Antibody Interp SEE NOTE Hepatitis A IgM Ab (NON-REACTIVE) Hep Bs Antigen (Negative) Hep B Core IgM Ab (NON-REACTIVE) Hepatitis C Antibody (Negative) Monoscreen Negative (Negative) Q Fever Phase I IgG Ab Q Fever Phase I IgM Ab Q Fever Phase II IgG Ab Q Fever Phase II IgM Ab [place] IgG Ab [place]etts[place] IgM Ab Typhus Fever IgG Ab Typhus Fever IgM Ab Blood Type Antibody Screen 05/25/24 05/25/24 05/25/24 Range/Units 05:55 05:45 01:19 WBC 11.64 H (4.8-10.8) K/ul RBC 3.48 L (4.20-5.40) M/uL Hgb 11.6 L (12.0-16.0) g/dl Hct 33.7 L (37.0-47.0) % MCV 96.8 (80.0-100.0) fL MCH 33.3 (25.0-34.0) pg MCHC 34.4 (32.0-36.0) g/dL RDW Std Deviation 51.1 H (36.4-46.3) fL RDW Coeff of Kati 14.6 H (11.5-14.5) % Plt Count 175 (130-400) K/uL MPV 8.6 L (9.4-12.4) fL Immature Gran % (Auto) % Neut % (Auto) % Lymph % (Auto) % [place] % (Auto) % Eos % (Auto) % Baso % (Auto) % Neut # (Auto) (1.40-6.50) K/uL Lymph # (Auto) (1.20-3.40) K/uL [place] # (Auto) (0.11-0.59) K/uL Eos # (Auto) (0.00-0.50) K/uL Baso # (Auto) (0.00-0.20) K/uL Immature Gran # (Auto) (0.01-0.20) K/uL ESR 63 H (0-30) mm/hr PT (9.0-12.0) Seconds INR (0.9-1.1) APTT (21-31) Seconds PTT Ratio Fibrinogen (184-400) mg/dl Heparin Anti-Xa, Unfract (0.3-0.7) IU/ml VBG pH (7.36-7.41) VBG pCO2 (38-50) mmHg VBG pO2 mmHg VBG HCO3 mmol/L VBG O2 Saturation % VBG Base Excess mEq/L Sodium 124 L 121 L (136-145) mmol/L Potassium 4.3 4.3 D (3.5-5.1) mmol/L Chloride 93 L 87 L (98-107) mmol/L Carbon Dioxide 19 L 19 L (21-32) mmol/L Anion Gap 12 H 15 H (3-11) BUN 45 H 48 H (6-23) mg/dl Creatinine 1.57 H D 1.87 H D (0.6-1.2) mg/dl Est Cr Clr Drug Dosing 31.7 27.3 ml/min eGFR Est GFR ( Amer) 37.8 30.6 ml/min Est GFR (Non-Af Amer) 32.6 26.4 ml/min BUN/Creatinine Ratio 28.7 H 25.7 H (10-20) Glucose 101 H 99 (70-99(Fasting)) mg/dl POC Glucose (70-99) mg/dl Estimat Average Glucose 120 mg/dl Hemoglobin A1c 5.8 H (4.5-5.6) % Osmolality (280-300) mOsm/kg Lactate (0.4-2.0) mmol/L Calcium 7.6 L 7.8 L (8.6-10.3) mg/dl Phosphorus 2.0 L (2.5-4.9) mg/dl Magnesium 2.0 (1.7-2.4) mg/dl Total Bilirubin 2.2 H (0.2-1.0) mg/dl Direct Bilirubin 1.1 H (0-0.2) mg/dl AST 37 (13-39) U/L ALT 35 (7-52) U/L Alkaline Phosphatase 111 H (34-104) U/L Lactate Dehydrogenase 335 H (86-244) U/L Total Creatine Kinase 85 (26-192) U/L Troponin I High Sens (0-14) pg/ml C-Reactive Protein (0-0.5) mg/dl Total Protein 5.9 L D (6.0-8.3) gm/dl Albumin 2.9 L (3.4-5.0) gm/dl Globulin (2.5-4.0) gm/dl Albumin/Globulin Ratio (0.9-2) Vitamin B12 1094 H (180-914) pg/ml Folate 14.14 (>5.38) ng/ml Procalcitonin (0-0.5) ng/ml TSH (0.300-4.500) uIu/ml Free T4 (0.61-1.60) ng/dl Random Cortisol mcg/dl Urine Color Urine Appearance (Clear) Urine pH (4.5-7.5) Ur Specific Walker (1.000-1.030) Urine Protein (Negative) Urine Glucose (UA) (Negative) Urine Ketones (Negative) Urine Blood (Negative) Urine Nitrite (Negative) Urine Bilirubin (Negative) Urine Urobilinogen (Negative) Ur Leukocyte Esterase (Negative) Urine WBC (Auto) (0-5) /hpf Urine RBC (Auto) (0-2) /hpf U Hyaline Cast (Auto) (0-2) /lpf U Epithel Cells (Auto) (0-2) /hpf Urine Bacteria (Auto) (None Seen) Calcium Oxalate Crystal (None Prsent) Urine Osmolality 412 L (500-800) mOsm/kg Ur Random Creatinine 83.8 mg/dl Ur Random Sodium 12 mmol/L Nasal Screen MRSA (PCR) (Negative) Anaplasma Smear See Comment A. phagocytophilum DNA Babesia Smear See Comment Babesia microti DNA PCR Lyme Disease Screen (Negative) CMV IgM Ab AU/mL CMV IgG Ab/TORCH U/mL Ehrlichia DNA (PCR) EBV Capsid Ag IgG Ab U/mL EBV Capsid Ag IgM Ab U/mL EBV EA Restrict+Diffuse U/mL EBV Nuclear Antigen Ab U/mL EBV Antibody Interp Hepatitis A IgM Ab (NON-REACTIVE) Hep Bs Antigen (Negative) Hep B Core IgM Ab (NON-REACTIVE) Hepatitis C Antibody (Negative) Monoscreen (Negative) Q Fever Phase I IgG Ab Q Fever Phase I IgM Ab Q Fever Phase II IgG Ab Q Fever Phase II IgM Ab Rickettsia IgG Ab Rickettsia IgM Ab Typhus Fever IgG Ab Typhus Fever IgM Ab Blood Type Antibody Screen 05/25/24 05/24/24 05/24/24 Range/Units 01:04 21:04 19:11 WBC (4.8-10.8) K/ul RBC (4.20-5.40) M/uL Hgb (12.0-16.0) g/dl Hct (37.0-47.0) % MCV (80.0-100.0) fL MCH (25.0-34.0) pg MCHC (32.0-36.0) g/dL RDW Std Deviation (36.4-46.3) fL RDW Coeff of Kati (11.5-14.5) % Plt Count (130-400) K/uL MPV (9.4-12.4) fL Immature Gran % (Auto) % Neut % (Auto) % Lymph % (Auto) % [place]ata[place] % (Auto) % Eos % (Auto) % Baso % (Auto) % Neut # (Auto) (1.40-6.50) K/uL Lymph # (Auto) (1.20-3.40) K/uL [place] # (Auto) (0.11-0.59) K/uL Eos # (Auto) (0.00-0.50) K/uL Baso # (Auto) (0.00-0.20) K/uL Immature Gran # (Auto) (0.01-0.20) K/uL ESR (0-30) mm/hr PT 11.2 (9.0-12.0) Seconds INR 1.0 (0.9-1.1) APTT (21-31) Seconds PTT Ratio Fibrinogen (184-400) mg/dl Heparin Anti-Xa, Unfract (0.3-0.7) IU/ml VBG pH (7.36-7.41) VBG pCO2 (38-50) mmHg VBG pO2 mmHg VBG HCO3 mmol/L VBG O2 Saturation % VBG Base Excess mEq/L Sodium (136-145) mmol/L Potassium (3.5-5.1) mmol/L Chloride (98-107) mmol/L Carbon Dioxide (21-32) mmol/L Anion Gap (3-11) BUN (6-23) mg/dl Creatinine (0.6-1.2) mg/dl Est Cr Clr Drug Dosing ml/min eGFR Est GFR ( Amer) ml/min Est GFR (Non-Af Amer) ml/min BUN/Creatinine Ratio (10-20) Glucose (70-99(Fasting)) mg/dl POC Glucose (70-99) mg/dl Estimat Average Glucose mg/dl Hemoglobin A1c (4.5-5.6) % Osmolality (280-300) mOsm/kg Lactate 2.5 H* 2.6 H* (0.4-2.0) mmol/L Calcium (8.6-10.3) mg/dl Phosphorus (2.5-4.9) mg/dl Magnesium (1.7-2.4) mg/dl Total Bilirubin (0.2-1.0) mg/dl Direct Bilirubin (0-0.2) mg/dl AST (13-39) U/L ALT (7-52) U/L Alkaline Phosphatase (34-104) U/L Lactate Dehydrogenase (86-244) U/L Total Creatine Kinase (26-192) U/L Troponin I High Sens 12.3 D (0-14) pg/ml C-Reactive Protein 10.96 H (0-0.5) mg/dl Total Protein (6.0-8.3) gm/dl Albumin (3.4-5.0) gm/dl Globulin (2.5-4.0) gm/dl Albumin/Globulin Ratio (0.9-2) Vitamin B12 (180-914) pg/ml Folate (>5.38) ng/ml Procalcitonin (0-0.5) ng/ml TSH (0.300-4.500) uIu/ml Free T4 (0.61-1.60) ng/dl Random Cortisol mcg/dl Urine Color Urine Appearance (Clear) Urine pH (4.5-7.5) Ur Specific Walker (1.000-1.030) Urine Protein (Negative) Urine Glucose (UA) (Negative) Urine Ketones (Negative) Urine Blood (Negative) Urine Nitrite (Negative) Urine Bilirubin (Negative) Urine Urobilinogen (Negative) Ur Leukocyte Esterase (Negative) Urine WBC (Auto) (0-5) /hpf Urine RBC (Auto) (0-2) /hpf U Hyaline Cast (Auto) (0-2) /lpf U Epithel Cells (Auto) (0-2) /hpf Urine Bacteria (Auto) (None Seen) Calcium Oxalate Crystal (None Prsent) Urine Osmolality (500-800) mOsm/kg Ur Random Creatinine mg/dl Ur Random Sodium mmol/L Nasal Screen MRSA (PCR) (Negative) Anaplasma Smear A. phagocytophilum DNA Pending Babesia Smear Babesia microti DNA PCR Pending Lyme Disease Screen (Negative) CMV IgM Ab AU/mL CMV IgG Ab/TORCH U/mL Ehrlichia DNA (PCR) EBV Capsid Ag IgG Ab U/mL EBV Capsid Ag IgM Ab U/mL EBV EA Restrict+Diffuse U/mL EBV Nuclear Antigen Ab U/mL EBV Antibody Interp Hepatitis A IgM Ab NON-REACTIVE (NON-REACTIVE) Hep Bs Antigen Negative (Negative) Hep B Core IgM Ab NON-REACTIVE (NON-REACTIVE) Hepatitis C Antibody Negative (Negative) Monoscreen (Negative) Q Fever Phase I IgG Ab Pending Q Fever Phase I IgM Ab Pending Q Fever Phase II IgG Ab Pending Q Fever Phase II IgM Ab Pending Rickettsia IgG Ab Pending Rickettsia IgM Ab Pending Typhus Fever IgG Ab Pending Typhus Fever IgM Ab Pending Blood Type Antibody Screen 05/24/24 05/24/24 Range/Units 17:49 01:04 WBC 13.61 H (4.8-10.8) K/ul RBC 4.15 L (4.20-5.40) M/uL Hgb 13.9 (12.0-16.0) g/dl Hct 39.4 (37.0-47.0) % MCV 94.9 (80.0-100.0) fL MCH 33.5 (25.0-34.0) pg MCHC 35.3 (32.0-36.0) g/dL RDW Std Deviation 50.1 H (36.4-46.3) fL RDW Coeff of Kati 14.6 H (11.5-14.5) % Plt Count 219 (130-400) K/uL MPV 8.6 L (9.4-12.4) fL Immature Gran % (Auto) 2.1 % Neut % (Auto) 79.2 % Lymph % (Auto) 5.1 % Cata[place] % (Auto) 11.8 % Eos % (Auto) 1.1 % Baso % (Auto) 0.7 % Neut # (Auto) 10.78 H (1.40-6.50) K/uL Lymph # (Auto) 0.70 L (1.20-3.40) K/uL Cata[place] # (Auto) 1.60 H (0.11-0.59) K/uL Eos # (Auto) 0.15 (0.00-0.50) K/uL Baso # (Auto) 0.09 (0.00-0.20) K/uL Immature Gran # (Auto) 0.29 H (0.01-0.20) K/uL ESR (0-30) mm/hr PT (9.0-12.0) Seconds INR (0.9-1.1) APTT (21-31) Seconds PTT Ratio Fibrinogen (184-400) mg/dl Heparin Anti-Xa, Unfract (0.3-0.7) IU/ml VBG pH (7.36-7.41) VBG pCO2 (38-50) mmHg VBG pO2 mmHg VBG HCO3 mmol/L VBG O2 Saturation % VBG Base Excess mEq/L Sodium 118 L* (136-145) mmol/L Potassium 5.8 H (3.5-5.1) mmol/L Chloride 82 L (98-107) mmol/L Carbon Dioxide 20 L (21-32) mmol/L Anion Gap 16 H (3-11) BUN 54 H (6-23) mg/dl Creatinine 2.38 H (0.6-1.2) mg/dl Est Cr Clr Drug Dosing 21.4 ml/min eGFR Est GFR ( Amer) 22.8 ml/min Est GFR (Non-Af Amer) 19.7 ml/min BUN/Creatinine Ratio 22.7 H (10-20) Glucose 130 H (70-99(Fasting)) mg/dl POC Glucose (70-99) mg/dl Estimat Average Glucose mg/dl Hemoglobin A1c (4.5-5.6) % Osmolality 269 L (280-300) mOsm/kg Lactate (0.4-2.0) mmol/L Calcium 9.0 (8.6-10.3) mg/dl Phosphorus (2.5-4.9) mg/dl Magnesium 1.2 L (1.7-2.4) mg/dl Total Bilirubin 3.6 H (0.2-1.0) mg/dl Direct Bilirubin (0-0.2) mg/dl AST 42 H (13-39) U/L ALT 44 (7-52) U/L Alkaline Phosphatase 149 H (34-104) U/L Lactate Dehydrogenase (86-244) U/L Total Creatine Kinase (26-192) U/L Troponin I High Sens 23.2 H (0-14) pg/ml C-Reactive Protein (0-0.5) mg/dl Total Protein 7.6 (6.0-8.3) gm/dl Albumin 3.6 (3.4-5.0) gm/dl Globulin 4.0 (2.5-4.0) gm/dl Albumin/Globulin Ratio 0.9 (0.9-2) Vitamin B12 (180-914) pg/ml Folate (>5.38) ng/ml Procalcitonin 0.53 H (0-0.5) ng/ml TSH 5.183 H (0.300-4.500) uIu/ml Free T4 1.63 H (0.61-1.60) ng/dl Random Cortisol mcg/dl Urine Color Urine Appearance (Clear) Urine pH (4.5-7.5) Ur Specific Walker (1.000-1.030) Urine Protein (Negative) Urine Glucose (UA) (Negative) Urine Ketones (Negative) Urine Blood (Negative) Urine Nitrite (Negative) Urine Bilirubin (Negative) Urine Urobilinogen (Negative) Ur Leukocyte Esterase (Negative) Urine WBC (Auto) (0-5) /hpf Urine RBC (Auto) (0-2) /hpf U Hyaline Cast (Auto) (0-2) /lpf U Epithel Cells (Auto) (0-2) /hpf Urine Bacteria (Auto) (None Seen) Calcium Oxalate Crystal (None Prsent) Urine Osmolality (500-800) mOsm/kg Ur Random Creatinine mg/dl Ur Random Sodium mmol/L Nasal Screen MRSA (PCR) (Negative) Anaplasma Smear A. phagocytophilum DNA Babesia Smear Babesia microti DNA PCR Lyme Disease Screen Negative (Negative) CMV IgM Ab AU/mL CMV IgG Ab/TORCH U/mL Ehrlichia DNA (PCR) Pending EBV Capsid Ag IgG Ab U/mL EBV Capsid Ag IgM Ab U/mL EBV EA Restrict+Diffuse U/mL EBV Nuclear Antigen Ab U/mL EBV Antibody Interp Hepatitis A IgM Ab (NON-REACTIVE) Hep Bs Antigen (Negative) Hep B Core IgM Ab (NON-REACTIVE) Hepatitis C Antibody (Negative) Monoscreen (Negative) Q Fever Phase I IgG Ab Q Fever Phase I IgM Ab Q Fever Phase II IgG Ab Q Fever Phase II IgM Ab Rickettsia IgG Ab Rickettsia IgM Ab Typhus Fever IgG Ab Typhus Fever IgM Ab Blood Type Antibody Screen Diagnostic Findings Chest X-Ray 05/24/24 17:47 XR chest 1V portable CLINICAL HISTORY: weakness TECHNIQUE: Single frontal radiograph of the chest was obtained. Comparison: Comparison is made to chest radiograph 12/08/2014 and chest radiograp h 03/14/2016 FINDINGS: Degenerative changes are seen in the bilateral shoulders with ossific fragments noted. The cardiomediastinal silhouette is normal. The lungs are clear. No evidence of pleural effusion or pneumothorax. IMPRESSION: No acute chest disease. ACT 112: Negative or not required by law. Electronically signed by: Lang Mayers M.D. 05/24/2024 6:33 PM Renal Ultrasound 05/24/24 20:09 ULTRASOUND KIDNEYS AND BLADDER CLINICAL HISTORY: Acute renal insufficiency.. COMPARISON STUDY: No priors. TECHNIQUE: Real-time, grayscale, and color flow sonography of the kidneys and bladder is performed. Images are reviewed in the transverse and longitudinal planes. FINDINGS: Kidneys: The kidneys are normal in size and echotexture. The right kidney measures 10.3 cm in length and the left kidney measures 11.7 cm in length. There is no hydronephrosis. No shadowing renal calculi are identified. Small bilateral renal cysts measure up to 1.8 cm. There is no sonographic evidence of contour deforming renal mass lesion. No perinephric fluid is identified. Bladder: The bladder is normal in appearance. Ureteral jets were not seen. Upper abdomen: Survey imaging of the liver shows evidence of steatosis. IMPRESSION: 1. The kidneys are normal in size and without hydronephrosis. 2. The bladder is normal as imaged. 3. Hepatic steatosis. ACT 112: Negative or not required by law. Electronically signed by: Terrell Valdivia M.D. 05/25/2024 8:21 AM Duplex Scan Lower Extremity Artery 05/24/24 20:52 Exam(s): US ARTERIAL BILATERAL LOWER EXTREMITIES EXAM: US Duplex Bilateral Lower Extremities Arteries CLINICAL HISTORY: Reason for exam: dusky LE bilaterally, h/o PVD. TECHNIQUE: Real-time duplex ultrasound scan of the bilateral lower extremity arteries integrating B-mode two-dimensional vascular structure, Doppler spectral analysis and color flow Doppler imaging. COMPARISON: None. FINDINGS: Reportedly markedly limited/suboptimal exam due to patient inability to cooperate with the study. Right lower extremity: Moderate amount of calcified/noncalcified plaque seen throughout. Right common femoral artery: No occlusion or significant stenosis on color flow and spectral Doppler imaging. Normal waveform. Right superficial femoral artery: Proximal/mid right SFA: No occlusion or significant stenosis on color flow and spectral Doppler imaging. Biphasic waveform. Distal right SFA chronic occlusion with collaterals visualized. Right calf/foot arteries: Dampened velocities an abnormal monophasic waveform. Left lower extremity: Moderate amount of plaque seen throughout. Left common femoral artery: No acute findings. No occlusion or significant stenosis on color flow and spectral Doppler imaging. Normal waveform. Left superficial femoral artery: Proximal left superficial femoral artery with monophasic waveform. Left calf/foot arteries: Dampened velocities and abnormal monophasic waveform. Soft tissues: Soft tissue edema. IMPRESSION: Limited/suboptimal exam. Moderate amount of atherosclerotic plaques are visualized throughout the both lower extremity arteries. Demonstrates chronic occlusion with collaterals of the distal right superficial femoral artery. Right and left calf/foot arteries: Dampened velocities and abnormal monophasic arterial waveforms, compatible with high-grade peripheral arterial disease. Electronically signed by: Vero Lord MD, DABR 05/25/24 04:50 AM Chest X-Ray 05/26/24 11:54 XR chest 1V portable HISTORY: 74 years-old Female hypoxia acute hypoxia COMPARISON: 05/24/2024 TECHNIQUE: AP view of the chest FINDINGS: No pneumothorax identified. Equivocal trace pleural effusions. No pneumothorax, pleural effusion or overt pulmonary edema. Degenerative changes of the shoulders and spine. Large degenerative related loose bodies are noted within the bilateral glenohumeral joints. Surgical clips project over the right neck. IMPRESSION: Cardiomegaly with pulmonary vascular congestion with possible trace pleural effusions. ACT 112: Negative or not required by law. The above report was generated using voice recognition software. It may contain grammatical, syntax or spelling errors. Electronically signed by: Carlos Jackson M.D. 05/26/2024 12:47 PM Tibia/Fibula X-Ray 05/26/24 15:20 XR tibia fibula LT 2V CLINICAL HISTORY: Left leg wound. Evaluate for osteomyelitis. COMPARISON: Left knee radiographs March 18, 2016. FINDINGS: Left knee arthroplasty is intact. There is no periprosthetic fracture or lucency. No erosions within the left tibia or fibula are identified. There are no acute fractures. IMPRESSION: No evidence for osteomyelitis within the left tibia or fibula. ACT 112: Negative or not required by law. Electronically signed by: Roverto Mckoy M.D. 05/26/2024 5:40 PM Tibia/Fibula X-Ray 05/26/24 15:20 XR tibia fibula RT 2V HISTORY: 74 years-old Female r/o osteo soft tissue injury and possible osteomyelitis COMPARISON: Right knee radiographs 08/07/2015 TECHNIQUE: 2 views of the right tibia and fibula FINDINGS: Total joint arthroplasty of the knee is unremarkable. Arterial calcifications. No acute fracture, dislocation or osseous erosion. IMPRESSION: No acute osseous abnormality. ACT 112: Negative or not required by law. The above report was generated using voice recognition software. It may contain grammatical, syntax or spelling errors. Electronically signed by: Carlos Jackson M.D. 05/26/2024 4:42 PM PG Care Time/CCT Total # of Minutes Spent Total Time Spent: 100 Total Time Spent with Patient: Total time spent is greater than 50% in coordination of care (as documented) at patient's floor/unit and/or counseling patient: I spent 100 minutes overall addressing this case: 15 min in medical data review/discussion with referring provider(s) and/or preparation for the visit 20 min in direct interaction with the patient/exam 30 min in Advance Care Planning/Goals of Care discussions as detailed above in note (must be >16min) 15 min in subsequent review and synthesis of assessment and plan 20 min communicating with other providers regarding the patient's case: care mgt, primary team, ccm, nursing, OP hospice intake team Advanced Care Planning 15754 Advanced Care Planning 30 [place] [address] IN/OBS CONSULT LVL 4,60M (25 - SIGNIFICANT, SEPARATELY IDENTIFIABLE ) Patient Type New History Comprehensive Exam Comprehensive Medical Decision Making High Complexity Diagnoses Dyspnea and respiratory abnormalities R06.00; R06.89 Weakness generalized R53.1 Severe sepsis A41.9; R65.20 Advanced care planning/counseling discussion Z71.89 Palliative care by specialist Z51.5 Alcohol abuse F10.10 Dehydration E86.0 Additional Codes Advanced Care Planning - 70677 Advanced Care Planning 30 Min: 29725 Advanced Care Planning 30 Min ([id number])
== END 2024-05-27 18:15 | disposition hospice, home (50) | DRG 871 ==
LOC: ED 17:31 → 4W 20:07 → SUATTDRO 20:07 → 4W 21:55 → 2E 05-25 17:19 → 1E 05-26 14:41